=== PATIENT | male | born 1950 | race Caucasian/White ===

== ENCOUNTER → 2019-09-09 12:27 | Outpatient (CLI) | payer MEDICARE, SELFPAY ==
--- NOTE | 2019-09-09 12:32 | DI.RAD.S_ITS ---
PROCEDURE: XR FOOT LT MIN 3V INDICATIONS: Pain to 2nd and 3rd metatarsal s/p trauma TECHNIQUE: 3 views of the foot were acquired. COMPARISON: None. FINDINGS: Bones: No fractures or dislocations. No suspicious bony lesions. Mild degenerative changes of the 1st metatarsal phalangeal joint are present. An enthesophyte is evident at the Achilles tendon insertion on the calcaneal tuberosity. Soft tissues: No tibiotalar joint effusion. Achilles tendon appears normal. IMPRESSION: No acute osseous abnormality of the left foot. Dictated by: Rajesh Hernandez M.D. on 09/09/2019 at 12:00 Approved by: Rajesh Hernandez M.D. on 09/09/2019 at 12:03
== END ==
LOC: RAD 12:31
PROVIDERS: Visit Provider Nurse Practitioner
DX: M79.672 Pain in left foot (principal)
CPT/HCPCS: 73630

== ENCOUNTER 2020-08-13 13:02 | Inpatient (IN) | payer MEDICARE, SELFPAY ==
[2020-08-13] VITALS (79 sets, daily range): BP systolic 78–188; BP diastolic 48–90; PULSE 39–66; RESP 7–22; TEMP 34.8–37.2; O2SAT 91–100; BMI 24.5
--- NOTE | 2020-08-13 13:11 | DI.RAD.S_ITS ---
PROCEDURE: XR CHEST 1V INDICATIONS: intubated TECHNIQUE: One view of the chest was acquired. COMPARISON: None. FINDINGS: Surgical changes and devices: Endotracheal tube at the lower trachea. Cardiac generator device projecting over the left chest. Lungs and pleura: Low lung volumes. Mild left retrocardiac airspace opacity. Mildly prominent perihilar pulmonary markings. Suspect calcified left hilar lymph nodes. No pleural effusions or pneumothorax. Mediastinum: Mediastinal contours appear normal. Heart size is normal. Bones and chest wall: No suspicious bony lesions. Overlying soft tissues appear unremarkable. IMPRESSION: 1. Low lung volumes. 2. Mild left retrocardiac airspace opacity. This could be due to pneumonia, atelectasis, or aspiration. 3. Suspect calcified left hilar lymph nodes. Dictated by: Siddhartha Tai M.D. on 08/13/2020 at 13:39 Approved by: Siddhartha Tai M.D. on 08/13/2020 at 13:41
--- NOTE | 2020-08-13 13:16 | RT ---
Arrived to ER via EMS intubated, poss OD, at 1300. Placed to LTV in ER, verbal order Dr. Beltran: AC/450/rr 20, Fiow50%, 5 PEEP. CXR pending. At 1315, verbal order to decreased RR to 14. Lung sounds clear and distant (L>R)
--- NOTE | 2020-08-13 13:18 | ED.OVERDOSE ---
HPI - Overdose General Chief Complaint: Toxicology Problem Stated Complaint: Lorazepam OD, Time Seen by Provider: 08/13/20 13:10 Source: EMS Mode of arrival: EMS History of Present Illness HPI Narrative: Patient is a 70-year-old male with history insulin-dependent diabetes and of depression presenting with a clonazepam overdose. He took 60 tablets of clonazepam at 0.5 mg each for a total of 30 mg. patient was on or case I went he was transported by [facility] patient Ada durbin rated in route and was intubated by paramedics with a 100mg rocuronium at noon and etomidate. Post intubation his blood pressure had a systolic of 100. At 12:37p He got a 2nd dose of rocuronium at 50 mg per protocol. He apparently does have a history of V-tach arrest associated with hypothermia. His girlfriend was the 1 who called EMS. The presumed intentional overdose suicide attempt. No prior attempt according to son. Tried to get him into a hospital a week ago they were unsuccessful. Told by PCP not to let him be alone. Son: Aristides Marrero [phone] Related Data Home Medications Medication Instructions Recorded Confirmed aspirin 325 mg tablet 325 mg PO DAILY 09/09/19 08/13/20 atorvastatin 80 mg tablet 80 mg PO DAILY 09/09/19 08/13/20 omeprazole 20 mg capsule,delayed 20 mg PO ONCE cap 09/09/19 08/13/20 release sertraline 50 mg tablet 100 mg PO DAILY 09/09/19 08/13/20 cholecalciferol (vitamin D3) 25 mcg PO DAILY 08/13/20 08/13/20 cyanocobalamin (vitamin B-12) 1,000 mcg PO DAILY 08/13/20 08/13/20 lisinopril 20 mg PO DAILY 08/13/20 08/13/20 metformin 1,000 mg PO BID 08/13/20 08/13/20 quetiapine 50 mg PO BEDTIME 08/13/20 08/13/20 Allergies Allergy/AdvReac Type Severity Reaction Status Date / Time No Allergy Information Allergy Verified 08/13/20 13:29 Available Review of Systems Review of Systems ROS Unobtainable: Unobtainable due to medical condition Patient History Medical History (Updated 08/13/20 @ 15:54 by Anabel Ocasio DO) Chronic kidney disease, unspecified (Acute) CVA (cerebral vascular accident) (Acute) Dehydration (Acute) Depression (Acute) Type 2 diabetes mellitus without complication (Acute) Social History Smoking Status: Unknown if ever smoked Smoking Status: Unknown if ever smoked Exam Initial Vital Signs Initial Vital Signs: Vital Signs Pulse Rate 56 L 08/13/20 13:07 Blood Pressure 108/62 08/13/20 13:07 Pulse Oximetry 96 08/13/20 13:07 Gen.: Intubated sedated patient HEENT: Head is atraumatic pupils are pinpoint nonreactive Neck: No JVD Lungs: Clear bilaterally slightly decreased on left Cardiac: Regular rate and rhythm no murmurs Abdomen: Soft nontender nondistended Extremities: No edema no bony deformities Neurologic: Sedated on vent Course Orders Ordered: ED Orders 08/13/20 13:11 XR chest 1V Stat 08/13/20 13:13 Arterial Blood Gas Stat 08/13/20 13:15 Acetaminophen Stat Complete Blood Count AUTO DIFF Stat Comprehensive Metabolic Panel Stat Ethanol (ETOH) Stat Hepatic (Liver) Panel Stat Lactate (Lactic Acid) Stat Salicylate Stat Troponin & CK Cardiac Panel Stat 08/13/20 13:16 COVID19 -ED/INPAT/OR/L&D Stat 08/13/20 13:25 Urine Drug Screen, Rapid Stat 08/13/20 13:29 Endotracheal tube suction As needed 08/13/20 13:38 XR abdomen 1V Stat 08/13/20 13:41 Arterial Blood Gas Routine 08/13/20 13:46 Consult to Dietitian, Adult Routine Endotracheal tube suction As needed 08/13/20 13:48 CT head/brain wo con Stat 08/13/20 14:00 Arterial Blood Gas Daily Sputum Culture 08/13/20 14:23 EKG-12 Lead Stat 08/13/20 14:28 Consult to MANUFACTURING ENGINEERING MANAGER - Trapeze Artist Stat 08/14/20 14:00 Arterial Blood Gas Daily Sputum Culture 08/15/20 14:00 Arterial Blood Gas Daily Sputum Culture 08/16/20 14:00 Arterial Blood Gas Daily 08/17/20 14:00 Arterial Blood Gas Daily 08/18/20 14:00 Arterial Blood Gas Daily 08/19/20 14:00 Arterial Blood Gas Daily 08/20/20 14:00 Arterial Blood Gas Daily 08/21/20 14:00 Arterial Blood Gas Daily 08/22/20 14:00 Arterial Blood Gas Daily 08/23/20 14:00 Arterial Blood Gas Daily 08/24/20 14:00 Arterial Blood Gas Daily 08/25/20 14:00 Arterial Blood Gas Daily 08/26/20 14:00 Arterial Blood Gas Daily Acetaminophen (Tylenol) 650 mg VT Q6HR PRN PRN Reason: Fever Enoxaparin Sodium (Lovenox) 40 mg SUBCUT DAILY NELDA Fentanyl (Sublimaze) 50 mcg IV Q1HR PRN PRN Reason: Pain, Severe (7-10) Propofol (Propofol) 1,000 mg in 100 mls @ 2.127 mls/hr IV TITRATE NELDA; Protocol Last Titration: 08/13/20 17:55 Dose: 10 mcg/kg/min, 4.254 mls/hr Documented by: Titration: 08/13/20 16:12 Dose: 15 mcg/kg/min, 6.381 mls/hr Documented by: Titration: 08/13/20 16:10 Dose: 10 mcg/kg/min, 4.254 mls/hr Documented by: Titration: 08/13/20 15:20 Dose: 10 mcg/kg/min, 4.254 mls/hr Documented by: Titration: 08/13/20 15:15 Dose: 7 mcg/kg/min, 2.978 mls/hr Documented by: Titration: 08/13/20 14:40 Dose: 5 mcg/kg/min, 2.127 mls/hr Documented by: Admin: 08/13/20 13:31 Dose: 10 mcg/kg/min, 4.254 mls/hr Documented by: CARIDAD Fentanyl 1,000 mcg/ Dextrose 250 mls @ 12.408 mls/hr IV TITRATE NELDA; Protocol Last Titration: 08/13/20 16:12 Dose: 0.71 mcg/kg/hr, 12.585 mls/hr Documented by: Titration: 08/13/20 16:11 Dose: 0.7 mcg/kg/hr, 12.408 mls/hr Documented by: Admin: 08/13/20 13:52 Dose: 0.7 mcg/kg/hr, 12.408 mls/hr Documented by: CHANDANA Sodium Chloride (Normal Saline 0.9%) 1,000 mls @ 100 mls/hr IV CONT NELDA Last Admin: 08/13/20 17:11 Dose: 100 mls/hr Documented by: TAQUERIA Naloxone HCl (Narcan) 0.2 mg IV Q2MIN PRN PRN Reason: Opiate Reversal Pantoprazole Sodium (Protonix) 40 mg IV DAILY NELDA Discontinued Medications Sodium Chloride (Normal Saline 0.9%) 1,000 mls @ 150 mls/hr IV CONT NELDA Last Infusion: 08/13/20 15:02 Dose: 0 mls/hr Documented by: Infusion: 08/13/20 13:52 Dose: 999 mls/hr Documented by: Admin: 08/13/20 13:32 Dose: 150 mls/hr Documented by: CARIDAD Vital Signs Vital signs: Vital Signs - 8 hr 08/13/20 13:07 08/13/20 13:12 08/13/20 13:16 Temperature Pulse Rate 56 L 56 L 54 L Respiratory Rate 20 14 Blood Pressure 108/62 154/78 H 127/81 Pulse Oximetry 96 94 100 08/13/20 13:20 08/13/20 13:25 08/13/20 13:27 Temperature 94.6 F L 94.6 F L 94.8 F L Pulse Rate 66 62 61 Respiratory Rate 14 22 16 Blood Pressure 146/81 H 187/88 H 188/90 H Pulse Oximetry 100 100 100 08/13/20 13:30 08/13/20 13:35 08/13/20 13:40 Temperature 94.8 F L 95.0 F L 95.0 F L Pulse Rate 52 L 53 L 50 L Respiratory Rate 15 15 14 Blood Pressure 164/77 H 110/64 101/59 L Pulse Oximetry 100 100 100 08/13/20 13:41 08/13/20 13:45 08/13/20 13:50 Temperature Pulse Rate 49 L 49 L 48 L Respiratory Rate 14 13 11 L Blood Pressure 91/57 L 84/57 L Pulse Oximetry 100 100 97 08/13/20 14:07 08/13/20 14:10 08/13/20 14:15 Temperature Pulse Rate 45 L 45 L 44 L Respiratory Rate 17 16 Blood Pressure 97/61 91/54 L Pulse Oximetry 100 91 100 08/13/20 14:20 08/13/20 14:21 08/13/20 14:25 Temperature Pulse Rate 43 L 43 L 43 L Respiratory Rate 7 L 16 15 Blood Pressure 84/50 L 85/53 L Pulse Oximetry 100 100 100 08/13/20 14:30 08/13/20 14:35 08/13/20 14:40 Temperature Pulse Rate 42 L 40 L 40 L Respiratory Rate 14 14 14 Blood Pressure 89/53 L 91/55 L 93/55 L Pulse Oximetry 100 100 100 MDM - Overdose Lab Data Attestation: I reviewed the patient's lab results. Result diagrams: 08/13/20 13:15 08/13/20 13:15 Labs: Lab Results 08/13/20 08/13/20 08/13/20 Range/Units 13:15 13:15 13:15 WBC 5.0 (4.5-11.0) X10^3/uL RBC 4.67 (4.5-5.9) X10^6/uL Hgb 14.0 (13.5-17.5) g/dL Hct 41.4 (41-53) % MCV 88.6 (80-100) fL MCH 30.0 (26-34) PG MCHC 33.8 (30-36) % RDW 14.3 (11.6-14.8) % Plt Count 119 L (150-400) X10^3/uL Neut % (Auto) 66.3 (50-75) % Lymph % (Auto) 17.8 L (25-40) % [place] % (Auto) 11.8 (3-14) % Eos % (Auto) 3.4 (2-4) % Baso % (Auto) 0.7 (0-2) % Neut # (Auto) 3300 (3072-3718) /uL Lymph # (Auto) 900 L (1312-5503) /uL [place] # (Auto) 600 (0-900) /uL Eos # (Auto) 200 (0-450) /uL Baso # (Auto) 0 (0-100) /uL ABG pH (7.35-7.45) ABG pCO2 (35-45) mmHg ABG pO2 (80-100) mmHg ABG HCO3 (22-26) mmol/L ABG Total CO2 (21-31) mmol/L ABG O2 Saturation (95-100) % ABG Base Excess (-2-2) mmol/L FiO2 Sodium 140 (137-145) mmol/L Potassium 4.8 (3.4-5.1) mmol/L Chloride 105 (98-107) mmol/L Carbon Dioxide 28 (22-32) mmol/L BUN 20 (9-20) mg/dL Creatinine 1.10 (0.66-1.25) mg/dL Estimated GFR > 60.0 (>60) mL/min BUN/Creatinine Ratio 18.2 (6-22) Glucose 102 (80-110) mg/dL Lactate 1.4 (0.7-2.1) mmol/L Calcium 8.8 (8.4-10.2) mg/dL Total Bilirubin 1.0 (0.2-1.3) mg/dL Conjugated Bilirubin 0.0 (0.0-0.3) md/dL Unconjugated Bilirubin 0.8 (0.0-1.1) mg/dL AST 47 (17-59) IU/L ALT 35 (<50) IU/L Alkaline Phosphatase 79 (38-126) U/L Total Creatine Kinase 60 (55-170) U/L CK-MB (CK-2) TNP CK-MB (CK-2) Rel Index TNP Troponin I < 0.012 (0.01-0.034) ng/mL Total Protein 6.9 (6.3-8.2) g/dL Albumin 3.7 (3.5-5.0) g/dL Globulin 3.2 (1.7-4.1) g/dL Albumin/Globulin Ratio 1.2 (1.0-2.8) Salicylates < 1.0 (<20) mg/dL U Opiates 300ng/mL cut (Negative) Ur Oxycodone Screen (Negative) Urine Methadone Screen (Negative) Acetaminophen < 10 L (10-30) ug/mL Ur Barbiturates Screen (Negative) U Tricyclic Antidepress (Negative) Ur Phencyclidine Scrn (Negative) Ur Amphetamines Screen (Negative) U Methamphetamines Scrn (Negative) Ur MDMA Scrn (Ecstasy) (Negative) U Benzodiazepines Scrn (Negative) Urine Cocaine Screen (Negative) U Marijuana (THC) Screen (Negative) Ethyl Alcohol < 10 ( - 10) mg/dL COVID-19 PCR (Negative) 08/13/20 08/13/20 08/13/20 Range/Units 13:16 13:25 13:41 WBC (4.5-11.0) X10^3/uL RBC (4.5-5.9) X10^6/uL Hgb (13.5-17.5) g/dL Hct (41-53) % MCV (80-100) fL MCH (26-34) PG MCHC (30-36) % RDW (11.6-14.8) % Plt Count (150-400) X10^3/uL Neut % (Auto) (50-75) % Lymph % (Auto) (25-40) % [place] % (Auto) (3-14) % Eos % (Auto) (2-4) % Baso % (Auto) (0-2) % Neut # (Auto) (7688-6521) /uL Lymph # (Auto) (3534-6355) /uL [place] # (Auto) (0-900) /uL Eos # (Auto) (0-450) /uL Baso # (Auto) (0-100) /uL ABG pH 7.44 (7.35-7.45) ABG pCO2 35.7 (35-45) mmHg ABG pO2 107 H (80-100) mmHg ABG HCO3 24 (22-26) mmol/L ABG Total CO2 25 (21-31) mmol/L ABG O2 Saturation 98 (95-100) % ABG Base Excess 0.0 (-2-2) mmol/L FiO2 50 Sodium (137-145) mmol/L Potassium (3.4-5.1) mmol/L Chloride (98-107) mmol/L Carbon Dioxide (22-32) mmol/L BUN (9-20) mg/dL Creatinine (0.66-1.25) mg/dL Estimated GFR (>60) mL/min BUN/Creatinine Ratio (6-22) Glucose (80-110) mg/dL Lactate (0.7-2.1) mmol/L Calcium (8.4-10.2) mg/dL Total Bilirubin (0.2-1.3) mg/dL Conjugated Bilirubin (0.0-0.3) md/dL Unconjugated Bilirubin (0.0-1.1) mg/dL AST (17-59) IU/L ALT (<50) IU/L Alkaline Phosphatase (38-126) U/L Total Creatine Kinase (55-170) U/L CK-MB (CK-2) CK-MB (CK-2) Rel Index Troponin I (0.01-0.034) ng/mL Total Protein (6.3-8.2) g/dL Albumin (3.5-5.0) g/dL Globulin (1.7-4.1) g/dL Albumin/Globulin Ratio (1.0-2.8) Salicylates (<20) mg/dL U Opiates 300ng/mL cut Negative (Negative) Ur Oxycodone Screen Negative (Negative) Urine Methadone Screen Negative (Negative) Acetaminophen (10-30) ug/mL Ur Barbiturates Screen Negative (Negative) U Tricyclic Antidepress Negative (Negative) Ur Phencyclidine Scrn Negative (Negative) Ur Amphetamines Screen Negative (Negative) U Methamphetamines Scrn Negative (Negative) Ur MDMA Scrn (Ecstasy) Negative (Negative) U Benzodiazepines Scrn Positive H (Negative) Urine Cocaine Screen Negative (Negative) U Marijuana (THC) Screen Negative (Negative) Ethyl Alcohol ( - 10) mg/dL COVID-19 PCR Negative (Negative) Point of Care Testing Glucose POC 112 Imaging Data Chest x-ray: Radiologist's Impression: PROCEDURE: XR CHEST 1V INDICATIONS: intubated TECHNIQUE: One view of the chest was acquired. COMPARISON: None. FINDINGS: Surgical changes and devices: Endotracheal tube at the lower trachea. Cardiac generator device projecting over the left chest. Lungs and pleura: Low lung volumes. Mild left retrocardiac airspace opacity. Mildly prominent perihilar pulmonary markings. Suspect calcified left hilar lymph nodes. No pleural effusions or pneumothorax. Mediastinum: Mediastinal contours appear normal. Heart size is normal. Bones and chest wall: No suspicious bony lesions. Overlying soft tissues appear unremarkable. IMPRESSION: 1. Low lung volumes. 2. Mild left retrocardiac airspace opacity. This could be due to pneumonia, atelectasis, or aspiration. 3. Suspect calcified left hilar lymph nodes. Dictated by: Siddhartha Tai M.D. on 08/13/2020 at 13:39 CT scan - head: Radiologist's Impression: PROCEDURE: CT HEAD/BRAIN WO CON INDICATIONS: unresponsive TECHNIQUE: Noncontrast 4.5 mm thick angled axial sections acquired from the foramen magnum to the vertex, with coronal and sagittal reformats. For radiation dose reduction, the following was used: automated exposure control, adjustment of mA and/or kV according to patient size. COMPARISON: None. FINDINGS: Image quality: Excellent. CSF spaces: Basal cisterns are patent. No extra-axial fluid collections. The ventricles are symmetric in size and shape. Brain: No intracranial bleeds or masses. There is cerebral volume loss for age, with resultant ventricular and sulcal prominence. There are periventricular and deep white matter chronic small vessel ischemic changes. There is intracranial internal carotid artery atherosclerosis. Old right cerebellar infarct. Skull and face: Calvarium and visualized facial bones appear intact, without suspicious lesions. Sinuses: Visualized sinuses demonstrate minimal to mild bilaterally sinus fluid levels, right greater than left. Ethmoid mucosal thickening. IMPRESSION: 1. No acute intracranial process. 2. Moderate atrophy and chronic microvascular ischemic changes. Dictated by: Laverne King M.D. on 08/13/2020 at 14:13 Approved by: Laverne King M.D. on 08/13/2020 at 14:19 Abdominal x-ray: Radiologist's Impression: PROCEDURE: XR ABDOMEN 1V INDICATIONS: check OG placement TECHNIQUE: One view of the abdomen acquired. COMPARISON: None. FINDINGS: Surgical changes and devices: Orogastric tube tip is below the left hemidiaphragm and is in the region of mid to distal gastric lumen projecting at L2 level. Bowel: Bowel gas pattern is normal. Soft tissues: No suspicious abdominal calcifications. Visualized solid organ contours appear normal in size. Bones: No suspicious bony lesions. IMPRESSION: OG tube tip is in the region of mid to distal gastric lumen as above. No gross peritoneal free air. Dictated by: Geo Sheffield M.D. on 08/13/2020 at 14:19 ECG Data Attestation: I personally reviewed and interpreted this ECG as follows: Prior ECG tracings: not available for review Interpretation: Rate 44 p.r. interval 168 QRS [address] changes or signs of ischemia no priors to compare MDM Narrative Medical decision making narrative: Discussed with estrella Irving on the phone. Further information is added into the HPI. This seems to be an intentional overdose. Dr. Shah accept patient to the ICU Discharge Plan Departure Patient Disposition: Admitted As Inpatient Clinical Impression: Benzodiazepine (tranquilizer) overdose Qualifiers: Encounter type: initial encounter Injury intent: accidental or unintentional Qualified Code(s): T42.4X1A - Poisoning by benzodiazepines, accidental (unintentional), initial encounter Respiratory failure Qualifiers: Chronicity: acute Respiratory failure complication: unspecified whether with hypoxia or hypercapnia Qualified Code(s): J96.00 - Acute respiratory failure, unspecified whether with hypoxia or hypercapnia Discharge Date/Time: 08/13/20 16:14 Admit Date/Time: 08/13/20 14:42 Admit Provider: Musa Shah
[2020-08-13] MEDS: propofoL 1,000 MG/100 ML VIAL 4.254 MG IV (13:31)
[2020-08-13] MEDS: MIDAZOLAM 5 MG/ML VIAL (13:31)
[2020-08-13] MEDS: SODIUM CHLORIDE 0.9% 1,000 ML 150 ML IV (13:32)
--- NOTE | 2020-08-13 13:32 | RT ---
Verbal order Dr Beltran to withdraw ET tube 1 cm; now 23 at lip midline, also to decrease RR to 14. Secured by Ana and bite block, bilat breath sounds remain.
[2020-08-13 13:35] LABS: COVID19 -Nasal RAPID Negative (Negative)
[2020-08-13 13:36] LABS: Add Manual Diff / Slide Review NO; Basophils Absolute Auto 0 /uL (0-100); Basophils Percent Auto 0.7 % (0-2); Eosinophils Absolute Auto 200 /uL (0-450); Eosinophils Percent Auto 3.4 % (2-4); Hematocrit 41.4 % (41-53); Lymphocytes Absolute Auto 900 /uL (1100-4500); Lymphocytes Percent Auto 17.8 % (25-40); Mean Corpuscular HGB Conc 33.8 % (30-36); Mean Corpuscular Volume 88.6 fL (80-100); Monocytes Absolute Auto 600 /uL (0-900); Monocytes Percent Auto 11.8 % (3-14); Neutrophils Absolute Auto 3300 /uL (1500-7000); Neutrophils Percent Auto 66.3 % (50-75); Platelet Count 119 X10^3/uL (150-400); Red Blood Cell Count 4.67 X10^6/uL (4.5-5.9); Red Cell Distribution Width 14.3 % (11.6-14.8)
--- NOTE | 2020-08-13 13:38 | DI.RAD.S_ITS ---
PROCEDURE: XR ABDOMEN 1V INDICATIONS: check OG placement TECHNIQUE: One view of the abdomen acquired. COMPARISON: None. FINDINGS: Surgical changes and devices: Orogastric tube tip is below the left hemidiaphragm and is in the region of mid to distal gastric lumen projecting at L2 level. Bowel: Bowel gas pattern is normal. Soft tissues: No suspicious abdominal calcifications. Visualized solid organ contours appear normal in size. Bones: No suspicious bony lesions. IMPRESSION: OG tube tip is in the region of mid to distal gastric lumen as above. No gross peritoneal free air. Dictated by: Geo Sheffield M.D. on 08/13/2020 at 14:19 Approved by: Geo Sheffield M.D. on 08/13/2020 at 14:20
[2020-08-13 13:41] LABS: Alanine Aminotransferase 35 IU/L (<50); Albumin 3.7 g/dL (3.5-5.0); Albumin Globulin Ratio 1.2 (1.0-2.8); Alkaline Phosphatase 79 U/L (38-126); Aspartate Aminotransferase 47 IU/L (17-59); BUN Creatinine Ratio 18.2 (6-22); Bilirubin Unconjugated 0.8 mg/dL (0.0-1.1); Blood Urea Nitrogen 20 mg/dL (9-20); Calcium 8.8 mg/dL (8.4-10.2); Carbon Dioxide 28 mmol/L (22-32); Chloride 105 mmol/L (98-107); Creatine Kinase 60 U/L (55-170); Estimated Glomerular Filt Rate > 60.0 mL/min (>60); Globulin 3.2 g/dL (1.7-4.1); Glucose 102 mg/dL (80-110); Lactate (Lactic Acid) 1.4 mmol/L (0.7-2.1); Potassium 4.8 mmol/L (3.4-5.1); Sodium 140 mmol/L (137-145); Total Protein 6.9 g/dL (6.3-8.2)
[2020-08-13 13:46] LABS: UR Morphine/Opiate cutoff 300 Negative (Negative); Ur Creatinine Normal (Normal); Ur Specific Gravity Normal (Normal); Urine Amphetamines Negative (Negative); Urine Barbiturates Negative (Negative); Urine Benzodiazepines Positive (Negative); Urine Cocaine Negative (Negative); Urine MDMA Negative (Negative); Urine Methadone Negative (Negative); Urine Methamphetamines Negative (Negative); Urine Oxycodone Negative (Negative); Urine Phencyclidine Negative (Negative); Urine Tetrahydrocannabinol Negative (Negative); Urine Tricyclic Antidepressant Negative (Negative); Urine pH Normal (Normal)
--- NOTE | 2020-08-13 13:48 | DI.CT.S_ITS ---
PROCEDURE: CT HEAD/BRAIN WO CON INDICATIONS: unresponsive TECHNIQUE: Noncontrast 4.5 mm thick angled axial sections acquired from the foramen magnum to the vertex, with coronal and sagittal reformats. For radiation dose reduction, the following was used: automated exposure control, adjustment of mA and/or kV according to patient size. COMPARISON: None. FINDINGS: Image quality: Excellent. CSF spaces: Basal cisterns are patent. No extra-axial fluid collections. The ventricles are symmetric in size and shape. Brain: No intracranial bleeds or masses. There is cerebral volume loss for age, with resultant ventricular and sulcal prominence. There are periventricular and deep white matter chronic small vessel ischemic changes. There is intracranial internal carotid artery atherosclerosis. Old right cerebellar infarct. Skull and face: Calvarium and visualized facial bones appear intact, without suspicious lesions. Sinuses: Visualized sinuses demonstrate minimal to mild bilaterally sinus fluid levels, right greater than left. Ethmoid mucosal thickening. IMPRESSION: 1. No acute intracranial process. 2. Moderate atrophy and chronic microvascular ischemic changes. Dictated by: Laverne King M.D. on 08/13/2020 at 14:13 Approved by: Laverne King M.D. on 08/13/2020 at 14:19
[2020-08-13 13:51] LABS: HCO3 ABG 24 mmol/L (22-26); PCO2 ABG 35.7 mmHg (35-45); PO2 ABG 107 mmHg (80-100); TCO2 ABG 25 mmol/L (21-31); pH ABG 7.44 (7.35-7.45)
[2020-08-13 13:52] LABS: Fractionated Inspired Oxygen 50; Oxygen Saturation ABG 98 % (95-100)
[2020-08-13 13:53] LABS: Troponin I < 0.012 ng/mL (0.01-0.034)
[2020-08-13] MEDS: fentaNYL 1,000 MCG in DEXTROSE 5% IN WATER 230 ML 12.408 ML IV (14:16)
--- NOTE | 2020-08-13 14:22 | PC.NURSE ---
Son Stefano Marrero called to get update. ([phone]). Given update by provider.
[2020-08-13 14:43] LABS: Acetaminophen < 10 ug/mL (10-30); Ethanol (ETOH) < 10 mg/dL; Salicylate < 1.0 mg/dL (<20)
[2020-08-13 14:44] LABS: HEMOLYSIS 97 (0-50)
--- NOTE | 2020-08-13 15:11 | PC.NURSE ---
Update from friend Mouna who activated EMS this morning. Rocio has pt's wallet. States she would like to leave his phone / front end engineer here w/ his belongings.
--- NOTE | 2020-08-13 15:18 | PC.NURSE ---
[facility] updated from 08/08[place] visit record.
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
--- NOTE | 2020-08-13 16:51 | PC.NURSE ---
Patient arrived to unit from ER at 16:05 intubated/bagged, RT in room to switch to ventilator, PEEP 5, TV 450, RR 14. BP 121/60, HR in the 40s. OG, Hill, restraints in place. Propofol running at 15 mcg/kg/min and fentanyl 50 mcg/hr Suction and ambu bag at bedside.
[2020-08-13] MEDS: SODIUM CHLORIDE 0.9% 1,000 ML 100 ML IV (17:11)
[2020-08-14] VITALS (39 sets, daily range): BP systolic 91–148; BP diastolic 50–68; PULSE 44–60; RESP 10–19; TEMP 37–37.3; O2SAT 97–100; BMI 24.5
[2020-08-14] MEDS: SODIUM CHLORIDE 0.9% 1,000 ML 150 ML IV ×2 (04:17→11:09)
[2020-08-14] MEDS: propofoL 1,000 MG/100 ML VIAL 4.254 MG IV (04:19)
[2020-08-14 05:28] LABS: Add Manual Diff / Slide Review NO; Basophils Absolute Auto 0 /uL (0-100); Basophils Percent Auto 0.4 % (0-2); Eosinophils Absolute Auto 100 /uL (0-450); Eosinophils Percent Auto 1.9 % (2-4); Hematocrit 36.4 % (41-53); Hemoglobin 12.3 g/dL (13.5-17.5); Lymphocytes Absolute Auto 700 /uL (1100-4500); Lymphocytes Percent Auto 9.3 % (25-40); Mean Corpuscular HGB Conc 33.8 % (30-36); Mean Corpuscular Hemoglobin 29.6 PG (26-34); Mean Corpuscular Volume 87.7 fL (80-100); Monocytes Absolute Auto 800 /uL (0-900); Monocytes Percent Auto 10.5 % (3-14); Neutrophils Absolute Auto 5600 /uL (1500-7000); Neutrophils Percent Auto 77.9 % (50-75); Platelet Count 103 X10^3/uL (150-400); Red Blood Cell Count 4.14 X10^6/uL (4.5-5.9); Red Cell Distribution Width 14.2 % (11.6-14.8); White Blood Cell Count 7.2 X10^3/uL (4.5-11.0)
[2020-08-14 05:28] LABS: Fractionated Inspired Oxygen 40; HCO3 ABG 22 mmol/L (22-26); Oxygen Saturation ABG 98 % (95-100); PCO2 ABG 34.5 mmHg (35-45); PO2 ABG 99 mmHg (80-100); TCO2 ABG 23 mmol/L (21-31); pH ABG 7.42 (7.35-7.45)
[2020-08-14 05:35] LABS: Hemoglobin A1C% w Est Avg Glu 6.7 % (4.0-6.0)
[2020-08-14 05:37] LABS: Alanine Aminotransferase 32 IU/L (<50); Albumin Globulin Ratio 1.2 (1.0-2.8); Alkaline Phosphatase 77 U/L (38-126); Aspartate Aminotransferase 37 IU/L (17-59); BUN Creatinine Ratio 16.8 (6-22); Bilirubin Total 0.8 mg/dL (0.2-1.3); Bilirubin Unconjugated 0.7 mg/dL (0.0-1.1); Blood Urea Nitrogen 19 mg/dL (9-20); Calcium 8.2 mg/dL (8.4-10.2); Carbon Dioxide 25 mmol/L (22-32); Chloride 108 mmol/L (98-107); Estimated Glomerular Filt Rate > 60.0 mL/min (>60); Globulin 2.6 g/dL (1.7-4.1); Glucose 88 mg/dL (80-110); HEMOLYSIS < 15 (0-50); Magnesium 1.5 mg/dL (1.6-2.3); Potassium 4.1 mmol/L (3.4-5.1); Sodium 137 mmol/L (137-145); Total Protein 5.6 g/dL (6.3-8.2)
--- NOTE | 2020-08-14 06:10 | PC.NURSE ---
slot shift manager note: Patient remains on ventilator with settings: PRVC 450/14/40/5+ . Patient sedated with Propofol at 10 mcg/kg/min and Fentanyl at 0.35 mcg/kg/hr (24 mcg/hr) down from 45 mcg/hr when this RN took over care. Patient with soft BPs throughout the shift but maintained map >60. Pt sedated to maintain RASS -3. Patient originally hypothermic on admission, now 99.1. Restraints in place and assessed every 2 hours, along with patient repositioning. Urine output marginal with 200 mL out for shift, now jess in color. Sputum culture obtained by RT during shift. Patient with suicide precautions implemented. Patient pending possible extubation today. Patient currently resting in bed, no distress noted.
[2020-08-14 06:13] LABS: TSH w/ Reflex to FT4 1.78 uIU/mL (0.47-4.68)
[2020-08-14] MEDS: MAGNESIUM SULFATE 2 GM/50 ML PIGGYBACK IV (08:13)
[2020-08-14] MEDS: PANTOPRAZOLE 40 MG VIAL IV (08:13)
[2020-08-14] MEDS: ENOXAPARIN 40 MG/0.4 ML SYRINGE SUBCUT (08:13)
--- NOTE | 2020-08-14 08:47 | PM.PN.1 ---
Subjective Subjective Date Patient Seen: 08/14/20 Time Patient Seen: 08:47 Interval history: Jorge Alberto Marrero is A 70-year-old male with past medical history of diabetes, hypertension, depression, prior stroke and cardiac arrest who intentionally took 60 tablets of clonazepam and was intubated in the field for worsening respiratory status. He is doing well this morning, on sedation vacation and following commands and alert. Failed initial pressure support trial given excessive sleepiness and frequent prompting to breathe. Will continue throughout the day. Exam Vital Signs (past 8 hours): - 08/14/20 01:00 08/14/20 02:00 08/14/20 03:00 Temperature Pulse Rate 58 L 57 L 60 Respiratory Rate 14 14 13 Blood Pressure 91/55 L 92/50 L 103/54 L Pulse Oximetry 100 98 97 08/14/20 04:00 08/14/20 05:00 08/14/20 06:00 Temperature 99.1 F Pulse Rate 57 L 57 L 52 L Respiratory Rate 14 14 14 Blood Pressure 115/56 L 119/62 110/55 L Pulse Oximetry 98 98 99 Fraction of Inspired Oxygen 50 Oxygen Delivery Method Mechanical Ventilation Narrative Exam Narrative: GENERAL APPEARANCE: Well developed, well nourished, Appears comfortable. SKIN: Inspection of the skin reveals no rashes, ulcerations or petechiae. HEENT: Normocephalic atraumatic, extraocular muscles are intact, oropharynx is clear and mucous membranes are moist, neck is supple without adenopathy. OG tube in place. NECK: Supple and symmetric. There was no thyroid enlargement, and no tenderness, or masses were felt. CHEST: Normal AP diameter and normal contour without any kyphoscoliosis. LUNGS: Auscultation of the lungs revealed no wheezes, rhonchi, or rales. CARDIOVASCULAR: There was a bradycardic rate and regular rhythm without any murmurs, gallops, rubs. Peripheral pulses were 2+ and symmetric. ABDOMEN: Soft and nontender with normal bowel sounds. No ascites was noted. MUSCULOSKELETAL: There was no tenderness or effusions noted. Muscle strength and tone were normal. EXTREMITIES: No cyanosis, clubbing or edema. NEUROLOGIC: intubated off sedation, follows commands with all extremities. Objective Labs Result Diagrams: 08/14/20 05:00 08/14/20 05:00 Labs: Laboratory Results - last 24 hr 08/13/20 08/13/20 08/13/20 13:15 13:15 13:15 WBC 5.0 RBC 4.67 Hgb 14.0 Hct 41.4 MCV 88.6 MCH 30.0 MCHC 33.8 RDW 14.3 Plt Count 119 L Neut % (Auto) 66.3 Lymph % (Auto) 17.8 L [place] % (Auto) 11.8 Eos % (Auto) 3.4 Baso % (Auto) 0.7 Neut # (Auto) 3300 Lymph # (Auto) 900 L [place] # (Auto) 600 Eos # (Auto) 200 Baso # (Auto) 0 ABG pH ABG pCO2 ABG pO2 ABG HCO3 ABG Total CO2 ABG O2 Saturation ABG Base Excess FiO2 Sodium 140 Potassium 4.8 Chloride 105 Carbon Dioxide 28 BUN 20 Creatinine 1.10 Estimated GFR > 60.0 BUN/Creatinine Ratio 18.2 Glucose 102 Hemoglobin A1c Lactate 1.4 Calcium 8.8 Magnesium Total Bilirubin 1.0 Conjugated Bilirubin 0.0 Unconjugated Bilirubin 0.8 AST 47 ALT 35 Alkaline Phosphatase 79 Total Creatine Kinase 60 CK-MB (CK-2) TNP CK-MB (CK-2) Rel Index TNP Troponin I < 0.012 Total Protein 6.9 Albumin 3.7 Globulin 3.2 Albumin/Globulin Ratio 1.2 TSH Nasal Screen MRSA (PCR) Salicylates < 1.0 U Opiates 300ng/mL cut Ur Oxycodone Screen Urine Methadone Screen Acetaminophen < 10 L Ur Barbiturates Screen U Tricyclic Antidepress Ur Phencyclidine Scrn Ur Amphetamines Screen U Methamphetamines Scrn Ur MDMA Scrn (Ecstasy) U Benzodiazepines Scrn Urine Cocaine Screen U Marijuana (THC) Screen Ethyl Alcohol < 10 COVID-19 PCR 08/13/20 08/13/20 08/13/20 13:16 13:25 13:41 WBC RBC Hgb Hct MCV MCH MCHC RDW Plt Count Neut % (Auto) Lymph % (Auto) [place] % (Auto) Eos % (Auto) Baso % (Auto) Neut # (Auto) Lymph # (Auto) [place] # (Auto) Eos # (Auto) Baso # (Auto) ABG pH 7.44 ABG pCO2 35.7 ABG pO2 107 H ABG HCO3 24 ABG Total CO2 25 ABG O2 Saturation 98 ABG Base Excess 0.0 FiO2 50 Sodium Potassium Chloride Carbon Dioxide BUN Creatinine Estimated GFR BUN/Creatinine Ratio Glucose Hemoglobin A1c Lactate Calcium Magnesium Total Bilirubin Conjugated Bilirubin Unconjugated Bilirubin AST ALT Alkaline Phosphatase Total Creatine Kinase CK-MB (CK-2) CK-MB (CK-2) Rel Index Troponin I Total Protein Albumin Globulin Albumin/Globulin Ratio TSH Nasal Screen MRSA (PCR) Salicylates U Opiates 300ng/mL cut Negative Ur Oxycodone Screen Negative Urine Methadone Screen Negative Acetaminophen Ur Barbiturates Screen Negative U Tricyclic Antidepress Negative Ur Phencyclidine Scrn Negative Ur Amphetamines Screen Negative U Methamphetamines Scrn Negative Ur MDMA Scrn (Ecstasy) Negative U Benzodiazepines Scrn Positive H Urine Cocaine Screen Negative U Marijuana (THC) Screen Negative Ethyl Alcohol COVID-19 PCR Negative 08/13/20 08/14/20 08/14/20 19:30 05:00 05:00 WBC 7.2 RBC 4.14 L Hgb 12.3 L Hct 36.4 L MCV 87.7 MCH 29.6 MCHC 33.8 RDW 14.2 Plt Count 103 L Neut % (Auto) 77.9 H Lymph % (Auto) 9.3 L [place] % (Auto) 10.5 Eos % (Auto) 1.9 L Baso % (Auto) 0.4 Neut # (Auto) 5600 Lymph # (Auto) 700 L [place] # (Auto) 800 Eos # (Auto) 100 Baso # (Auto) 0 ABG pH ABG pCO2 ABG pO2 ABG HCO3 ABG Total CO2 ABG O2 Saturation ABG Base Excess FiO2 Sodium 137 Potassium 4.1 Chloride 108 H Carbon Dioxide 25 BUN 19 Creatinine 1.13 Estimated GFR > 60.0 BUN/Creatinine Ratio 16.8 Glucose 88 Hemoglobin A1c Lactate Calcium 8.2 L Magnesium 1.5 L Total Bilirubin 0.8 Conjugated Bilirubin 0.0 Unconjugated Bilirubin 0.7 AST 37 ALT 32 Alkaline Phosphatase 77 Total Creatine Kinase CK-MB (CK-2) CK-MB (CK-2) Rel Index Troponin I Total Protein 5.6 L Albumin 3.0 L Globulin 2.6 Albumin/Globulin Ratio 1.2 TSH Nasal Screen MRSA (PCR) Negative for mrsa Salicylates U Opiates 300ng/mL cut Ur Oxycodone Screen Urine Methadone Screen Acetaminophen Ur Barbiturates Screen U Tricyclic Antidepress Ur Phencyclidine Scrn Ur Amphetamines Screen U Methamphetamines Scrn Ur MDMA Scrn (Ecstasy) U Benzodiazepines Scrn Urine Cocaine Screen U Marijuana (THC) Screen Ethyl Alcohol COVID-19 PCR 08/14/20 08/14/20 08/14/20 05:00 05:00 05:15 WBC RBC Hgb Hct MCV MCH MCHC RDW Plt Count Neut % (Auto) Lymph % (Auto) [place] % (Auto) Eos % (Auto) Baso % (Auto) Neut # (Auto) Lymph # (Auto) [place] # (Auto) Eos # (Auto) Baso # (Auto) ABG pH 7.42 ABG pCO2 34.5 L ABG pO2 99 ABG HCO3 22 ABG Total CO2 23 ABG O2 Saturation 98 ABG Base Excess -2.0 FiO2 40 Sodium Potassium Chloride Carbon Dioxide BUN Creatinine Estimated GFR BUN/Creatinine Ratio Glucose Hemoglobin A1c 6.7 H Lactate Calcium Magnesium Total Bilirubin Conjugated Bilirubin Unconjugated Bilirubin AST ALT Alkaline Phosphatase Total Creatine Kinase CK-MB (CK-2) CK-MB (CK-2) Rel Index Troponin I Total Protein Albumin Globulin Albumin/Globulin Ratio TSH 1.78 Nasal Screen MRSA (PCR) Salicylates U Opiates 300ng/mL cut Ur Oxycodone Screen Urine Methadone Screen Acetaminophen Ur Barbiturates Screen U Tricyclic Antidepress Ur Phencyclidine Scrn Ur Amphetamines Screen U Methamphetamines Scrn Ur MDMA Scrn (Ecstasy) U Benzodiazepines Scrn Urine Cocaine Screen U Marijuana (THC) Screen Ethyl Alcohol COVID-19 PCR Assessment & Plan Assessment & Plan narrative: Jorge Alberto Marrero is A 70-year-old male with past medical history of diabetes, hypertension, depression, prior stroke and cardiac arrest who intentionally took 60 tablets of clonazepam this morning In a presumed suicide attempt. He was intubated in transport to the hospital for respiratory decompensation and is admitted to the ICU for further management. 1. acute hypoxemic respiratory failure, present on admission - likely secondary to intentional clonazepam overdose. Remained intubated overnight, will continue sedation vacations today and continued evaluations for readiness for extubation with spontaneous breathing trials. - Chest x-ray shows a mild left retrocardiac opacity, no other signs or symptoms of pneumonia and may be aspiration from intubation in the field. Will continue to monitor off antibiotics. - continue fentanyl and propofol for sedation while on ventilator. 2. intentional overdose with clonazepam, acute, present on admission. - patient's son states medication be an old prescription, no recent Rx for benzos apparent. - has been battling with depression for years - CERTIFIED PROSTHETIST VICE PRESIDENT consultation, precautions once alert. Likely DCR consultation given patient was brought to the ER at [facility]? recently and discharged home. 3. Depression, present on admission - will continue home medications once able 4. Diabetes, type II, present on admission, chronic - A1c 6.7 inicating adequate control. Continue glucose checks q6 hr and sliding scale insulin if necessary. 5. HTN - will hold home antihypertensives for now while on sedation 6. Prior CVA - continue ASA, lipitor. 7. Prior cardiac arrest - continue ASA, lipitor. DVT: lovenox daily Diet: NPO Dispo: admitted under intensive care. DCR consultation likely after extubation. CERTIFIED PROSTHETIST VICE PRESIDENT consultation. I spent 35 minutes providing critical care management this patient. This excludes time spent in performing separately billed procedures.
[2020-08-14] MEDS: ASPIRIN 325 MG TABLET PO (11:13)
[2020-08-14] MEDS: DEXTROSE 5%-0.9% NS 1,000 ML 150 ML IV ×2 (13:57→22:44)
--- NOTE | 2020-08-14 14:09 | CM.DANOTE ---
Addendum entered by Sonia Mckeon 08/14/20 14:48: Need to clarify if Dr. Sandoval is PCP? Original Note: DCP/Assessment: Reviewed chart. Patient is a 70yr old male admitted to [facility] after intentional drug overdose. Patient currently intubated and no family at bedside. PCP is Dr. Sandoval. Primary payor is 1)Medicare 2)? Attending physician is Dr. Shah. Per notes, patient intentionally took approximately 60 clonazepam in presumed suicide attempt. Patient currently in room #227 on vent. Patient expected to extubate later today. OPERATIONS ADVISOR unable to do MH assessment due to current medical status. Placed call to patient's son/Aristides explained OPERATIONS ADVISOR role. Aristides reports that patient has long h/o depression however, this is the first time he has attempted suicide. Aristides reports that patient has talked about it for years. Patient resides on [place] with [employer]. Per Aristides, he does not believe that patient currently enrolled in any MH services. Son reports that patient went to [place] ED last week in hopes of assistance for depression. Per son they attempted placement and were unable to obtain. Family instructed at that time not leave patient alone. Therefore, SO/Mouna helping facilitate 24/ care. Son also reports that major changes that he is aware of is: 1)change in season 2)change psychiatric medication. Son believes that sertraline is new medication. He reports that patient was complaining of side effects. Son does not believe DPOA paperwork has been completed but reports that patient would want either his son/Aristides or daughter/Brandy as decision makers. P: Pending. Due to severeness of suicide attempt anticipate that patient will need inpatient psychiatric placement when medically stable. Unable to determine until patient extubated and alert and oriented. Unclear on whether or not patient is voluntary or involuntary. ELISEO Bangura Discharge Planning/Care Management CM Discharge Assessment Start: 08/14/20 14:02 Freq: Status: Active Protocol: Document 08/14/20 14:02 EVELIN (Rec: 08/14/20 14:08 EVELIN [id number]) Discharge Planning Assessment Assigned Flight Service Specialist ELISEO Bangura Contact Information Aristides (son) [phone], Brandy (daughter) Advance Directives? No History Provided By Family Member,Medical Record Prior Living Arrangements House Comment Patient currently resides on [place] with CHARLES/Mouna Dominguez phone# [phone]. Household Members significant other Is patient alert and oriented? Yes: Son reports Alert and oriented prior to admit. Caregiver for Another No Comment PCP is Dr. Sandoval son does not believe patient was currently enrolled with any MH services . Comment Geriatric/MH placement. Comment Pending, patient intubated today and unable to communicate for assessment. Hopeful patient will be extubated later today. Patient will need appropriate MH assessment for potential psychiatric treatment. Discharge Plan Psychiatric Facility Transportation Arrangement Pending if patient goes to MH facility will use non-urgent BLS transport. Additional Comment None as of now. Whiteboard Updated in Patient Room with Yes name and ext. # of Flight Service Specialist Review Status In Process Next Review Type Continued Stay Review
--- NOTE | 2020-08-14 14:45 | PC.NURSE ---
Day Shift Note Pt sedated to RASS -3 on fentanyl 0.5 mcg/kg/hr (decreased to 0.25 mcg/kg/hr) and propofol decreased from 10 to 5 mcg/kg/min on AM assessment. On ventilator, settings TV 450, RR 14, FiO2 30%, and PEEP 5. SpO2 100%, RR 14 riding vent. Sedation turned off at 0800 and has remained off for whole shift. Opens eyes easily, follows commands, able to answer questions by nodding or shaking head. Denies pain. CPAP trials done 0820 - 0850 and 1430 - 1445. Pt failed both times due to sedation/decreased respirations/requiring cueing for breathing. Restraints in place to bilateral wrists. SB in the 40-50s. CBG 76 this afternoon, updated and pt started on D5NS at 150 ml/hr. Hill in place and draining clear yellow urine. Minimal white oral secretions. Son (Aristides) and S.O. (Mouna) both updated via phone. Turning every 2 hours.
--- NOTE | 2020-08-14 15:49 | DIET.PN ---
Dietary Progress Note Assessment: 70y M admitted after intentional lorazepam overdose intubated in field currently d2 on ventilator referred to nutrition for low serafin score (14 high risk for skin breakdown) and NPO on ventilator status. Pt has hx of depression and suicidal ideation, recently taken to [facility] by family for help without placement in facility. Pt having spontaneous breathing trials today but not extubated r/t difficulty remembering to breathe. Pt is appropriate for nutrition support as MAP >65 and lactate is 1.4. HT: 170.1cm WT: 70.9kg BMI: 24.5 Labs: Mg 1.5 L, A1c 6.7 Serafin: 14 Nutrition Diagnosis: inadequate protein energy intake r/t inadequate oral intake aeb pt d2 on ventilator c NPO status, pt high risk for skin breakdown r/t Serafin 14, pt failed two spontaneous breathing trials today. Interventions: 1. If pt continues to be intubated on 08/15/2020 recc continuous enteral feeding via OG with Glucerna 1.5 beginning rate of 20mL/h titrating up by 10mL/h q8h as tolerated to goal rate of 40mL/h. 300mL free water flushes q4h. Goal feed provides 1440 kcals (20kcal/kg) and 79g PRO (1.1g/kg) total free water from formula and flushes 2529mL (36mL/kg). Pt is at moderately low risk for refeeding, monitor labs and replete K+, phos, Mg as needed. HOB 30 degrees while feeding If residuals >500mL, contact RD or hospitalist. Diet Order: NPO EER: PO intake: 1750kcal (25kcal/kg), 70g PRO (1g/kg per elder) permissive underfeeding while on ventilator Monitoring/Evaluations: following daily for extubation, labs, TF, POs
[2020-08-14] MEDS: fentaNYL 1,000 MCG in DEXTROSE 5% IN WATER 230 ML IV (16:56)
[2020-08-14] MEDS: ATORVASTATIN 20 MG TABLET 80 MG PO (21:11)
[2020-08-15] VITALS (22 sets, daily range): BP systolic 98–167; BP diastolic 52–75; PULSE 47–86; RESP 10–26; TEMP 36.6–37.6; O2SAT 92–100
[2020-08-15] MEDS: propofoL 1,000 MG/100 ML VIAL 2.127 MG IV (00:18)
[2020-08-15] MEDS: DEXTROSE 5%-0.9% NS 1,000 ML 150 ML IV ×2 (04:45→11:28)
[2020-08-15 05:12] LABS: Add Manual Diff / Slide Review NO; Basophils Absolute Auto 0 /uL (0-100); Basophils Percent Auto 0.4 % (0-2); Eosinophils Absolute Auto 200 /uL (0-450); Eosinophils Percent Auto 2.8 % (2-4); Hematocrit 36.4 % (41-53); Hemoglobin 12.3 g/dL (13.5-17.5); Lymphocytes Absolute Auto 800 /uL (1100-4500); Lymphocytes Percent Auto 13.3 % (25-40); Mean Corpuscular HGB Conc 33.9 % (30-36); Mean Corpuscular Hemoglobin 29.9 PG (26-34); Mean Corpuscular Volume 88.2 fL (80-100); Monocytes Absolute Auto 700 /uL (0-900); Neutrophils Absolute Auto 4400 /uL (1500-7000); Neutrophils Percent Auto 72.5 % (50-75); Platelet Count 98 X10^3/uL (150-400); Red Blood Cell Count 4.13 X10^6/uL (4.5-5.9); Red Cell Distribution Width 14.5 % (11.6-14.8)
[2020-08-15 05:23] LABS: Alanine Aminotransferase 32 IU/L (<50); Albumin 2.9 g/dL (3.5-5.0); Albumin Globulin Ratio 1.1 (1.0-2.8); Alkaline Phosphatase 77 U/L (38-126); Aspartate Aminotransferase 39 IU/L (17-59); Bilirubin Total 0.9 mg/dL (0.2-1.3); Bilirubin Unconjugated 0.8 mg/dL (0.0-1.1); Blood Urea Nitrogen 13 mg/dL (9-20); Calcium 7.8 mg/dL (8.4-10.2); Carbon Dioxide 25 mmol/L (22-32); Chloride 107 mmol/L (98-107); Estimated Glomerular Filt Rate > 60.0 mL/min (>60); Globulin 2.6 g/dL (1.7-4.1); Glucose 150 mg/dL (80-110); HEMOLYSIS < 15 (0-50); Magnesium 1.9 mg/dL (1.6-2.3); Potassium 3.6 mmol/L (3.4-5.1); Sodium 137 mmol/L (137-145); Total Protein 5.5 g/dL (6.3-8.2)
--- NOTE | 2020-08-15 06:42 | PC.NURSE ---
cosmetics counter manager note: Patient restless at start of shift - coughing, bucking ventilator, banging hand on bed. Patient repositioned, suctioned and stimulus decreased. Fentanyl increased at this time for comfort. Patient remained restless and uncomfortable. During this time, patient with moderate amount of secretions which have been suctioned out. Notified AMANDA Oliveros and she instructed to restart Propofol infusion at a low dose. Patient restarted on 5 mcg/kg/min. Patient resting comfortably thereafter. Patient remains in restraints due to high risk for dislodging tubes. Patient turned and repositioned every 2 hours. Hill catheter remains in place, great urine output throughout the shift. VSS, however, patient remains bradycardic with heart rate in 40's. This AM, patient awake, alert, following commands. Propofol turned off, Fentanyl has been decreased throughout the shift to 0.2 mcg/kg/hr ~ 14 mcg/hr. Tube feeding has remained running throughout the shift, and is increased to goal of 40 mL/hr with 300 mL H20 flush Q4H. Patient tolerating feedings well. Patient currently resting in bed, no distress noted pending possible extubation this morning.
--- NOTE | 2020-08-15 09:36 | PC.NURSE ---
Addendum entered by Florence Vargas R.N. 08/15/20 15:06: Pt is awake this afternoon. Son at bedside. Using IS and acapella with reminders. Repositioning independently in room. Original Note: Day Shift Note Pt with eyes open on AM assessment, tracking in room, answering questions by nodding or shaking head. Appears calm, able to make needs known by writing on paper. Reports pain to throat, otherwise denies pain. Fentanyl turned off at 0730 in preparation for CPAP trial. CPAP trial started at 0750 with FiO2 30%. Maintained oxygen saturations 98% and above, pulled good tidal volumes, RR mostly in the 12-16 bpm range but did occasionally decrease to 7-8 bpm. Readily responsive to voice. Reviewed with Dr. Shah and RT at bedside. Order received to extubate and pt extubated to RA at 0910. Restraints removed at 0900 to bilateral wrists. OG tube d/c'd at this time as well. Pt exhibited effective cough, able to clear secretions. Voice is soft but clear. RR 18-22 bpm, shallow, SpO2 96%. RT reviewed IS and acapella with pt, pt able to participate. SpO2 occ. decreasing down to 88%, placed on 2L NC at 0940, sats now at 98% and on end tidal CO2 (38-39). Oriented to room, call light within reach. Suicide precautions in place with one to one sitter at all times. Currently drowsy/sleeping.
[2020-08-15] MEDS: ENOXAPARIN 40 MG/0.4 ML SYRINGE SUBCUT (10:36)
[2020-08-15] MEDS: PANTOPRAZOLE 40 MG VIAL IV (10:36)
--- NOTE | 2020-08-15 14:50 | PC.NURSE ---
Patient's Son just arrived to visit. Patient is awake, alert, calm, has been watching TV and talking on his Cell Phone.
--- NOTE | 2020-08-15 15:43 | PC.NURSE ---
Patient's Son has just left. Patient is calm, repositioned, watching TV.
--- NOTE | 2020-08-15 17:36 | PM.PN.1 ---
Subjective Subjective Date Patient Seen: 08/15/20 Time Patient Seen: 17:36 Interval history: Jorge Alberto Marrero is A 70-year-old male with past medical history of diabetes, hypertension, depression, prior stroke and cardiac arrest who intentionally took 60 tablets of clonazepam and was intubated in the field for worsening respiratory status. He was able to be extubated this morning and is now improved and breathing well on nasal cannula only. He states he feels tired. After recently starting seroquel the patient could not sleep for more than a few hours at night, had racing thoughts and just wanted some rest. He no longer wanted to live like that and ultimately this is the reason he ingested the old prescription he had. He still states that he just wants to rest and feels like he would be better off . He was also having increasing difficulty with his CPAP at home and was making him miserable. Exam Vital Signs (past 8 hours): - 08/15/20 11:00 08/15/20 12:00 08/15/20 14:00 Temperature 99.4 F 99.5 F Pulse Rate 69 61 67 Respiratory Rate 20 21 23 Blood Pressure 143/65 H 136/61 139/66 Pulse Oximetry 97 95 94 08/15/20 16:00 Temperature 99.0 F Pulse Rate 53 L Respiratory Rate 21 Blood Pressure 167/75 H Pulse Oximetry 99 Fraction of Inspired Oxygen 0.3 Oxygen Delivery Method Nasal Cannula Narrative Exam Narrative: GENERAL APPEARANCE: Well developed, well nourished, Appears comfortable. SKIN: Inspection of the skin reveals no rashes, ulcerations or petechiae. HEENT: Normocephalic atraumatic, extraocular muscles are intact, oropharynx is clear and mucous membranes are moist, neck is supple without adenopathy. NECK: Supple and symmetric. There was no thyroid enlargement, and no tenderness, or masses were felt. CHEST: Normal AP diameter and normal contour without any kyphoscoliosis. LUNGS: Auscultation of the lungs revealed no wheezes, rhonchi, or rales. CARDIOVASCULAR: There was a bradycardic rate and regular rhythm without any murmurs, gallops, rubs. Peripheral pulses were 2+ and symmetric. ABDOMEN: Soft and nontender with normal bowel sounds. No ascites was noted. MUSCULOSKELETAL: There was no tenderness or effusions noted. Muscle strength and tone were normal. EXTREMITIES: No cyanosis, clubbing or edema. NEUROLOGIC: flat affect. alert and oriented x3. No focal deficits. Objective Labs Result Diagrams: 08/15/20 04:46 08/15/20 04:46 Labs: Laboratory Results - last 24 hr 08/15/20 08/15/20 04:46 04:46 WBC 6.0 RBC 4.13 L Hgb 12.3 L Hct 36.4 L MCV 88.2 MCH 29.9 MCHC 33.9 RDW 14.5 Plt Count 98 L Neut % (Auto) 72.5 Lymph % (Auto) 13.3 L [place] % (Auto) 11.0 Eos % (Auto) 2.8 Baso % (Auto) 0.4 Neut # (Auto) 4400 Lymph # (Auto) 800 L [place] # (Auto) 700 Eos # (Auto) 200 Baso # (Auto) 0 Sodium 137 Potassium 3.6 Chloride 107 Carbon Dioxide 25 BUN 13 Creatinine 1.18 Estimated GFR > 60.0 BUN/Creatinine Ratio 11.0 Glucose 150 H Calcium 7.8 L Magnesium 1.9 Total Bilirubin 0.9 Conjugated Bilirubin 0.0 Unconjugated Bilirubin 0.8 AST 39 ALT 32 Alkaline Phosphatase 77 Total Protein 5.5 L Albumin 2.9 L Globulin 2.6 Albumin/Globulin Ratio 1.1 Assessment & Plan Assessment & Plan narrative: Jorge Alberto Marrero is A 70-year-old male with past medical history of diabetes, hypertension, depression, prior stroke and cardiac arrest who intentionally took 60 tablets of clonazepam this morning In a presumed suicide attempt. He was intubated in transport to the hospital for respiratory decompensation and is admitted to the ICU for further management. 1. acute hypoxemic respiratory failure, present on admission, improved. - likely secondary to intentional clonazepam overdose. Remained intubated for two nights until was alert enough to tolerate extubation this morning. Extubated successfully to nasal cannula. - Chest x-ray shows a mild left retrocardiac opacity, no other signs or symptoms of pneumonia and may be aspiration from intubation in the field. Will continue to monitor off antibiotics. 2. intentional overdose with clonazepam, acute, present on admission. - patient's son states medication be an old prescription, no recent Rx for benzos apparent but patient admits he took an old prescription. - has been battling with depression for years. Patient with recent change and started on seroquel which only made his thoughts race and where he could not sleep. Sertraline was also increased a week ago from 50 to 100 mg daily. - will continue to hold antidepressants currently, consider psychiatric consultation vs further inpatient psychiatric management either as an involuntary or voluntary basis. 3. Depression, present on admission - held as above temporarily. Will not resume home seroquel given seemingly worsened symptoms. 4. Diabetes, type II, present on admission, chronic - A1c 6.7 inicating adequate control. Continue glucose checks q6 hr and sliding scale insulin if necessary. 5. HTN - will hold home antihypertensives for now while on sedation 6. Prior CVA - continue ASA, lipitor. 7. Prior cardiac arrest - continue ASA, lipitor. DVT: lovenox daily Diet: dysphagia diet after intubation pending speech evaluation. Dispo: admitted under intensive care, stable for regular floor after successfully extubating this AM once respiratory status is stable. Likely discharge to inpatient psychiatry on voluntary basis or involuntary hold. Social work consultation ordered and will begin working on disposition tomorrow. I spent 35 minutes providing critical care management this patient. This excludes time spent in performing separately billed procedures.
[2020-08-15] MEDS: ATORVASTATIN 20 MG TABLET 80 MG PO (21:36)
[2020-08-16] VITALS (8 sets, daily range): BP systolic 102–143; BP diastolic 55–71; PULSE 44–58; RESP 20–23; TEMP 36.9–37.1; O2SAT 93–99
[2020-08-16 05:24] LABS: Add Manual Diff / Slide Review NO; Basophils Absolute Auto 0 /uL (0-100); Basophils Percent Auto 0.6 % (0-2); Eosinophils Absolute Auto 300 /uL (0-450); Eosinophils Percent Auto 4.8 % (2-4); Hematocrit 36.2 % (41-53); Hemoglobin 12.6 g/dL (13.5-17.5); Lymphocytes Absolute Auto 900 /uL (1100-4500); Lymphocytes Percent Auto 14.9 % (25-40); Mean Corpuscular HGB Conc 34.9 % (30-36); Mean Corpuscular Hemoglobin 30.4 PG (26-34); Mean Corpuscular Volume 87.2 fL (80-100); Monocytes Absolute Auto 800 /uL (0-900); Monocytes Percent Auto 13.9 % (3-14); Neutrophils Absolute Auto 3900 /uL (1500-7000); Neutrophils Percent Auto 65.8 % (50-75); Platelet Count 103 X10^3/uL (150-400); Red Blood Cell Count 4.16 X10^6/uL (4.5-5.9); White Blood Cell Count 5.9 X10^3/uL (4.5-11.0)
[2020-08-16 05:34] LABS: Alanine Aminotransferase 42 IU/L (<50); Albumin Globulin Ratio 1.1 (1.0-2.8); Alkaline Phosphatase 89 U/L (38-126); Aspartate Aminotransferase 43 IU/L (17-59); BUN Creatinine Ratio 10.4 (6-22); Bilirubin Total 0.7 mg/dL (0.2-1.3); Bilirubin Unconjugated 0.5 mg/dL (0.0-1.1); Blood Urea Nitrogen 11 mg/dL (9-20); Calcium 8.2 mg/dL (8.4-10.2); Carbon Dioxide 27 mmol/L (22-32); Chloride 108 mmol/L (98-107); Estimated Glomerular Filt Rate > 60.0 mL/min (>60); Globulin 2.8 g/dL (1.7-4.1); Glucose 98 mg/dL (80-110); HEMOLYSIS < 15 (0-50); Magnesium 1.8 mg/dL (1.6-2.3); Potassium 3.6 mmol/L (3.4-5.1); Sodium 138 mmol/L (137-145); Total Protein 5.8 g/dL (6.3-8.2)
--- NOTE | 2020-08-16 07:09 | PC.NURSE ---
Arrived at 7am, Patient currently sleeping on his left side.
--- NOTE | 2020-08-16 09:02 | PC.NURSE ---
Patient stated that he would just like to sleep for a while, after he finished eating his Breakfast
[2020-08-16] MEDS: ENOXAPARIN 40 MG/0.4 ML SYRINGE SUBCUT (09:35)
[2020-08-16] MEDS: PANTOPRAZOLE 40 MG VIAL IV (09:35)
[2020-08-16] MEDS: ASPIRIN 325 MG TABLET PO (09:35)
--- NOTE | 2020-08-16 10:08 | PC.NURSE ---
Directed by RN to discontinue Q2 Vitals, Tele and Continuous Pulse Ox. Patient is resting and trying to sleep.
--- NOTE | 2020-08-16 10:13 | PC.NURSE ---
Rec'd pt in bed resting comfortably with eyes closed. Easily awakens to verbal and is answering questions correctly and appropriately with clear speech. His affect is flat and depressed. He reports ongoing depression. He admits to taking too much medication in attempts to end his life but denies current SI. He states that he has a counselor in [place] that he meets with and that his PCP prescribes his medications. He lives with his girlfriend of 8 years. He denies previous suicide attempts. Reports that his ex committed suicide. He becomes quiet upon further questioning. States that he is really just tired and would like to get some sleep. SPO2 on 2L 98%. Removed O2 for room air trial. F/u SPO2 95%. Encouraged use of IS/acapella. Pt Declined oral care and hygiene at this time. Educated to plan of care. He verbalizes understanding. Call light in easy reach. 1:1 sitter for safety.
[2020-08-16] MEDS: lisinopriL 20 MG TABLET PO (12:21)
--- NOTE | 2020-08-16 12:21 | CM.SWNOTE ---
Addendum entered by ELISEO Kwok 08/16/20 15:06: [facility]- Full today and tomorrow, ER on [facility] Addendum entered by ELISEO Kwok 08/16/20 14:45: [facility]- Full today and tomorrow [place]- no too medically complex [place] still reviewing Addendum entered by ELISEO Kwok 08/16/20 14:03: Discussed case again w/Dr Shah; Suggested placement may be challenging d/t CPAP machine. [facility] [place] still reviewing. Dr Shah does not think patient is safe to return home at this time. Patient remains voluntary now at 1400, but does have a tendency to waver in agreement. Suggested we attempt consult by [facility] psychiatrist (?) to assist in dispo planning, assess safety and acuity; plan for potential of DC home if no psychiatric bed is secured and patient found safe to return home. Dr Shah agrees. Addendum entered by ELISEO Kwok 08/16/20 13:58: Attempting following eric-psych units: [facility]- no d/t CPAP (Aerosolizing/COVID-19 risk) [place] [facility]- Reviewing [place] - Reviewing Original Note: [facility] [place] - Computer Lab Aide Assessment Start: 08/16/20 11:57 Freq: Status: Active Protocol: Document 08/16/20 11:58 NIKHIL (Rec: 08/16/20 12:21 NIKHIL [id number]) VIDEO MANAGER/Computer Lab Aide Assessment Presenting Problem A 70-year-old male comes in after intentionally taking 60 tablets of clonazepam; After recently starting seroquel the patient could not sleep for more than a few hours at night , had racing thoughts and just wanted some rest. He no longer wanted to live like that and ultimately this is the reason he ingested the old prescription he had. He still states that he just wants to rest and feels like he would be better off . Intentional OD in the setting of increased depression and inability to function over the last 2-3 weeks; loss in appetite, loss of sleep, finding no stu in daily activities and no motivation to continue living life. Precipitating Event(s) Seasonal Affective Disorder, Severe depression w/symptoms of such escalating over the last 2 weeks. Lack of sleep, medication change- increase in Zoloft and addition of Seroquel Patient Strengths Good support network, PCP and counselor on Thursday checking in daily, attempting to manage patient's severe depression. Likes living on [place] typically alert friends, family, counselor of increased thoughts about suicide and agitation; felt this time I was going crazy and just wanted it to end Current Behavioral Health Provider(s) PCP Dr Villalpando, Counselor [facility] Include Facility, Provider[facility] Family Hx of Behavioral Abuse Ex spouse severely depressed w /anxiety, multiple suicide attempts Psychiatric Hospitalizations (date(s)/ N/A location) Psychosocial information & Support Lives w/ gf Mouna, together x8 Systems years, on [place], both retired. Son Stefano supportive and involved, dtr Brandy also involved in patient's life lives in [place]. Patient sufferred multiple strokes 3 years ago, states ever since then I get really depressed when the weather changes and it gets darker typically able to travel annually to [place] when weather changes to assist w/ symtpoms of SAD Son: Aristides Marrero [phone] Dtr Brandy Mccormick [phone] School/Work N/A Legal Matters - Outstanding Issues N/A Orientation (Person/Place/Time) Oriented Stated Mood Tired Affect (Congruent with Mood?) Flat, according to Dr Shah very severe depressed state w/ psychomotor retardation Thought Content - Specify/Describe WNL Obsessions, Delusions, Hallucinations Thought Processes (Jiwjdwh-Gxmpxxvr-Ihop Logical, no able to discuss Bqtmphph-Kktcgpqr-Xrvmlvotkc- goals, want to sleep Oagxnjhtqscqrj-Vaxrjjr-Uvinffbbmtka- Thought Blocking) Speech (Sjbhro-Kbsz-Gvchzvy-Rapid-Soft- Slow Loud-Pressured) Motor (Phchdr-Oacovxnov-Axfb-Other) Slow Insight (Lzac-Bqtr-Qanz/Limited) Poor Judgement (Hohr-Afjs-Vdrs/Limited) Poor and impulsive Impulse Control (Adequate-Impaired) Impaired Memory (Hzjrmgwly-Wgbmvv-[place], Intact Impaired-Intact) Concentration (Intact-Impaired) Impaired Attention (Intact-Impaired) Impaired Behavior (Appropriate-Inappropriate) Appropriate Additional Comment Able to recall events and discuss increase in depressive feelings over last two weeks although exhibits qualities of an acutely, severely depressed individual requires inpatient psychiatric unit for crisis stabilization and medication management Suicidal Ideation (Plan) Yes: Pills, whatever is available Homicidal Ideation (Plan) No Intervention Medically stable and now requires additional stabilization at psychiatric facility. Dr Shah, hospitalist has cleared medically but does not endorse safe plan for home today. Patient remains acutely depressed w/slowed motor response, flat affect and inability to safety plan for return home. Failed outpatient management of his severe depression. RA Plan Attempt eric-psychiatric placement ELISEO Kwok
--- NOTE | 2020-08-16 13:36 | PC.NURSE ---
A member of clergy (Maggy) came to visit the Patient. Patient is calm and welcomed the visitor.
--- NOTE | 2020-08-16 14:00 | PC.NURSE ---
Patient is awake and still visiting with the member of clergy.
--- NOTE | 2020-08-16 14:23 | PC.NURSE ---
Patient's visitor left at 14:20. Patient is calm and wants to rest.
--- NOTE | 2020-08-16 14:43 | PC.NURSE ---
Patient has been up out of bed three times so far during this day shift, to go to the Bathroom. He is moderately stable on his feet, using only Standby Assistance when he gets out of bed. He has utilized the toilet independently each time and then walked to the sink to wash his hands. He returns to bed where he is able to reposition himself. Bed alarm is turned on for his safety.
--- NOTE | 2020-08-16 15:27 | P.PN_ITS ---
Subjective Subjective Date Patient Seen: 08/16/20 Time Patient Seen: 15:28 Interval history: Jorge Alberto Marrero is A 70-year-old male with past medical history of diabetes, hypertension, depression, prior stroke and cardiac arrest who intentionally took 60 tablets of clonazepam and was intubated in the field for worsening respiratory status. He was able to be extubated on HD#2 and is now off supplemental oxygen. He states he feels tired and just wants to rest. Have asked for psychiatry consultation from Dr. Chirinos given severe depression. Patient was avoidant on answering whether he regretted taking the pills, stating that he did accomplish his wish of getting some rest. He denies complaints of nausea, vomiting, abdominal pain, chest pain, shortness of breath today. Exam Vital Signs (past 8 hours): - 08/16/20 08:00 08/16/20 10:17 08/16/20 12:20 Temperature 98.4 F Pulse Rate 44 L Blood Pressure 143/65 H 139/68 Pulse Oximetry 97 93 Fraction of Inspired Oxygen 0.3 Oxygen Delivery Method Room Air Oxygen Flow Rate 1.5 Narrative Exam Narrative: GENERAL APPEARANCE: Well developed, well nourished, Appears comfortable. SKIN: Inspection of the skin reveals no rashes, ulcerations or petechiae. HEENT: Normocephalic atraumatic, extraocular muscles are intact, oropharynx is clear and mucous membranes are moist, neck is supple without adenopathy. NECK: Supple and symmetric. There was no thyroid enlargement, and no tenderness, or masses were felt. CHEST: Normal AP diameter and normal contour without any kyphoscoliosis. LUNGS: Auscultation of the lungs revealed no wheezes, rhonchi, or rales. CARDIOVASCULAR: There was a bradycardic rate and regular rhythm without any murmurs, gallops, rubs. Peripheral pulses were 2+ and symmetric. ABDOMEN: Soft and nontender with normal bowel sounds. No ascites was noted. MUSCULOSKELETAL: There was no tenderness or effusions noted. Muscle strength and tone were normal. EXTREMITIES: No cyanosis, clubbing or edema. NEUROLOGIC: flat affect with psychomotor retardation. alert and oriented x3. No focal deficits. Objective Labs Result Diagrams: 08/16/20 04:54 08/16/20 04:54 Labs: Laboratory Results - last 24 hr 08/16/20 08/16/20 04:54 04:54 WBC 5.9 RBC 4.16 L Hgb 12.6 L Hct 36.2 L MCV 87.2 MCH 30.4 MCHC 34.9 RDW 14.0 Plt Count 103 L Neut % (Auto) 65.8 Lymph % (Auto) 14.9 L [place] % (Auto) 13.9 Eos % (Auto) 4.8 H Baso % (Auto) 0.6 Neut # (Auto) 3900 Lymph # (Auto) 900 L [place] # (Auto) 800 Eos # (Auto) 300 Baso # (Auto) 0 Sodium 138 Potassium 3.6 Chloride 108 H Carbon Dioxide 27 BUN 11 Creatinine 1.06 Estimated GFR > 60.0 BUN/Creatinine Ratio 10.4 Glucose 98 Calcium 8.2 L Magnesium 1.8 Total Bilirubin 0.7 Conjugated Bilirubin 0.0 Unconjugated Bilirubin 0.5 AST 43 ALT 42 Alkaline Phosphatase 89 Total Protein 5.8 L Albumin 3.0 L Globulin 2.8 Albumin/Globulin Ratio 1.1 Assessment & Plan Assessment & Plan narrative: Jorge Alberto Marrero is A 70-year-old male with past medical history of diabetes, hypertension, depression, prior stroke and cardiac arrest who intentionally took 60 tablets of clonazepam this morning In a presumed suicide attempt. He was intubated in transport to the hospital for respiratory decompensation and is admitted to the ICU for further management. 1. acute hypoxemic respiratory failure, present on admission, resolved. - likely secondary to intentional clonazepam overdose. Remained intubated for two nights until was alert enough to tolerate extubation on 08/15. Extubated s uccessfully to nasal cannula and now off supplemental oxygen. - Chest x-ray shows a mild left retrocardiac opacity, no other signs or symptoms of pneumonia and may be aspiration from intubation in the field. Will continue to monitor off antibiotics. - speech therapy was consulted but patient did not have any cough and was tolerating a regular diet without problems. 2. intentional overdose with clonazepam, acute, present on admission. - patient's son states medication be an old prescription, no recent Rx for benzos apparent but patient admits he took an old prescription. - has been battling with depression for years. Patient with recent change and started on seroquel which only made his thoughts race and where he could not sleep. Sertraline was also increased a week ago from 50 to 100 mg daily. - will continue to hold antidepressants currently, have asked for consultation from Dr. Chirinos for further medication recommendations. 3. Depression, present on admission - held as above temporarily. Will not resume home seroquel given seemingly worsened symptoms. 4. Diabetes, type II, present on admission, chronic - A1c 6.7 inicating adequate control. Glucose levels have been unremarkable. 5. HTN - can resume home lisiniopril today. 6. Prior CVA - continue ASA, lipitor. 7. Prior cardiac arrest - continue ASA, lipitor. 8. DB on CPAP thearpy. - continue CPAP therapy at night. DVT: lovenox daily Diet: dysphagia diet after intubation pending speech evaluation. Dispo: admitted under intensive care, stable for regular floor after successfully extubating. Likely discharge to inpatient psychiatry on voluntary basis or involuntary hold although this is apparently difficult for a patient on CPAP therapy. Appreciate social work / care management assistance. I spent 35 minutes providing critical care management this patient. This excludes time spent in performing separately billed procedures.
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
--- NOTE | 2020-08-16 20:44 | PC.NURSE ---
Evening Shift Note: Pt received laying in bed, alert and oriented. Pt denies suicidal ideation or thoughts of self harm. Pt states I feel much better, I think its the rest I've gotten. Pt went on to describe the feelings of depression that he has been having, stating It seems like you should just be able to get over it, because its in your brain. But you just can't shake it. Pt otherwise remains on RA, denies SOB, endorses having a new cough, non-productive. Pt with VSS. Pt with 1:1 observation. Will continue to monitor, notify MD with changes.
[2020-08-16] MEDS: ATORVASTATIN 20 MG TABLET 80 MG PO (21:15)
[2020-08-17] VITALS: BP 161/77; PULSE 49; RESP 20; TEMP 36.7; O2SAT 95
[2020-08-17 02:58] VITALS: BP 145/68; PULSE 48
[2020-08-17 05:02] LABS: Blood Urea Nitrogen 14 mg/dL (9-20); Calcium 8.4 mg/dL (8.4-10.2); Carbon Dioxide 30 mmol/L (22-32); Chloride 107 mmol/L (98-107); Estimated Glomerular Filt Rate > 60.0 mL/min (>60); Glucose 106 mg/dL (80-110); HEMOLYSIS < 15 (0-50); Potassium 3.9 mmol/L (3.4-5.1); Sodium 138 mmol/L (137-145)
[2020-08-17] MEDS: PANTOPRAZOLE 20 MG TABLET PO (06:57)
[2020-08-17] MEDS: ENOXAPARIN 40 MG/0.4 ML SYRINGE SUBCUT (08:19)
[2020-08-17] MEDS: ASPIRIN 325 MG TABLET PO (08:19)
[2020-08-17] MEDS: lisinopriL 20 MG TABLET PO (08:19)
[2020-08-17 08:35] VITALS: BP 116/59; PULSE 44; RESP 20; TEMP 36.6; O2SAT 98
--- NOTE | 2020-08-17 09:09 | PC.NURSE ---
Addendum entered by Armando Hardy R.N. 08/17/20 14:57: 1200- Checked on pt. He reports feeling increasing depression and panic. Spent some time listening and providing emotional support to pt. He does not demonstrate overt s/s of anxiety attack or panic but reports increase in symptoms starting last night. He is unable to explain exactly how he feels but does agree that he is feeling hopeless in regards to his continued depression. He is hoping to be able to go to an inpatient psychiatric facility since all other interventions to help his depression have been ineffective. Still awaiting d/c plan. Maintaining 1:1 sitter for safety. Original Note: Woke pt for VS/assessment/breakfast. Pt is AO x4 and answering questions appropriately with clear speech. He is agreeable to get OOB to chair for breakfast. After breakfast, pt ambulated 250 ft in the hallway without assistive device. Gait is steady. He is denying pain. He ate 90% of his breakfast and took his AM pills whole no difficulty. He was able to shower and attend to his hygiene independently with observation per hospital policy. He currently denies SI. He is asking appropriate questions regarding the plan of care. Spoke with [facility]ON MELTER who is working on inpatient psych placement. Will update pt when more information is available. He verbalizes understanding.
--- NOTE | 2020-08-17 11:58 | CM.SWNOTE ---
Addendum entered by ELISEO Kwok 08/17/20 15:28: [facility] has patient on list for re-review today but now slammed by people in their ED which will have priority for placement. [facility]- Has roommate-able male bed open, will consider voluntary, CPAP okay, request clinical packet for review, request Magnesium and EKG to be included. Faxed packet w/requested items to F# [phone]. Awaiting CB. gave CB contact for ICU direct at [phone] and ED ANIMAL ATTENDANT Ke Reynolds in case he can assist once this ANIMAL ATTENDANT leaves for the day. Addendum entered by ELISEO Kwok 08/17/20 15:24: Correction: Staff unable to assist with settings on patient's home CPAP machine. Patient tells this ANIMAL ATTENDANT that he has placed call to the sleep therapy specialist to discuss CPAP settings, awaiting CB JW Original Note: ANIMAL ATTENDANT Note Spoke w/Dr Shah and nursing staff this morning, reviewed POC. Dr Shah continues to feel patient requires inpatient psychiatric care, not safe to return home at this time. Met w/patient, reviewed efforts yesterday in placement attempt. Patient sitting up, new home CPAP machine has been delivered to room and patient pleased, staff assisting in settings. Patient states he had a good night sleep last night and hopeful new cpap will assist in continued restful sleep in the evenings. Asked patient about POC today; patient explains he feels better but understands that the consensus from staff is that inpatient psychiatric care is required before return home. Discussed the rigor of inpatient therapy sessions/group with patient and he understood, states he is agreeable to this. Spoke w/VASYL Arias this morning, patient doing very well physically, walking the hallway independently w/o AD, steady gait no LOB. According to VM from [facility], concern about mobility and patient's willingness to participate, which is reasonable. Patient in good spirits and moving well; would benefit from a re-eval from [facility] if they have beds today. ELISEO Kwok
--- NOTE | 2020-08-17 13:15 | PC.NURSE ---
at Pt's bedside discussing medication
--- NOTE | 2020-08-17 13:36 | ST.IPCSEOM ---
Visit Care Team Role Provider Type Salvatore Chirinos MD Other Providers Physician Specialty: Psychiatry Address: [address] [place] [address], [place], [address] Email: [email or web address] Anabel Ocasio DO Emergency Provider Physician Referring Provider Specialty: Emergency Medicine Address: [address] [place] [address], [id number] Email: [email or web address] Musa Shah DO Admit Provider Physician Attending Provider Specialty: Internal Medicine Address: [address] [place] [address], [id number] Email: [email or web address] 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 Pt initially placed on Mechanical soft diet by Dr. Shah. Swallow evaluation to r/o aspiration risk and to upgrade diet as indicated. Subjective Observations Pt in bed seated at the edge of the bed with noon meal. Reported by Patient Current Diet Dysphagia mechanical,Thin liquids Baseline Feeding Method Independent in self-feeding Objective Assessment Mental Status Alert,Responsive,Cooperative Oral Integrity WFL Lip Function Within normal limits Observation of Lips at Rest Symmetrical Pucker Within normal limits Tongue Function Within normal limits Food and Liquid Trials Position During Assessment Upright (90 degrees) Liquids Trialed Thin Solids Trialed Regular Administration Type Self-feeding Oral Impairment Within functional limits Oral Phase Comments pt demonstrated adequate mastication with rotary chew pattern. No oral stasis observed following trial with cracker. No cough/choke s/sx aspiration. Voice clear following thin liquids. Pharyngeal Impairment Within functional limits Pharyngeal Phase Comments Palpation for hyolaryngal elevation indicated adequate elevation and forward movement of hyoid. Silent aspiration cannot be ruled out as mechanical evaluation (MBSS, FEES) would be necessary to determine silent aspiration. Fatigue/Endurance Endurance WNL Results Swallowing observed to be WFL at regular texture/thin liquids. No overt s/sx aspiration. Findings Swallowing Function Within functional limits Severity of Swallow Impairment Within functional limits Impact on Safety and Functioning No limitations Recommendations Swallowing Treatment No Recommended Solids Regular Recommended Liquids Thin Medication Recommendations As Tolerated Discharge Recommendations Other (comment) Education Patient/Caregiver Education Described results of evaluation,Patient expressed understanding of evaluation
--- NOTE | 2020-08-17 15:11 | P.PN_ITS ---
Subjective Subjective Date Patient Seen: 08/17/20 Time Patient Seen: 15:11 Interval history: Jorge Alberto Marrero is A 70-year-old male with past medical history of diabetes, hypertension, depression, prior stroke and cardiac arrest who intentionally took 60 tablets of clonazepam and was intubated in the field for worsening respiratory status. He was able to be extubated on HD#2 and is now off supplemental oxygen. He states he feels tired and just wants to rest. Appreciate recommendations from Dr. Chirinos, psychiatry. He denies further complaints of chest pain, shortness of breath, nausea, vomiting, abdominal pain. Exam Vital Signs (past 8 hours): - 08/17/20 08:35 Temperature 97.8 F Pulse Rate 44 L Respiratory Rate 20 Blood Pressure 116/59 L Pulse Oximetry 98 Fraction of Inspired Oxygen 0.3 Oxygen Delivery Method Room Air Oxygen Flow Rate 0 Narrative Exam Narrative: GENERAL APPEARANCE: Well developed, well nourished, profoundly depressed appearing. SKIN: Inspection of the skin reveals no rashes, ulcerations or petechiae. HEENT: Normocephalic atraumatic, extraocular muscles are intact, oropharynx is clear and mucous membranes are moist, neck is supple without adenopathy. NECK: Supple and symmetric. There was no thyroid enlargement, and no tenderness, or masses were felt. CHEST: Normal AP diameter and normal contour without any kyphoscoliosis. LUNGS: Auscultation of the lungs revealed no wheezes, rhonchi, or rales. CARDIOVASCULAR: There was a bradycardic rate and regular rhythm without any murmurs, gallops, rubs. Peripheral pulses were 2+ and symmetric. ABDOMEN: Soft and nontender with normal bowel sounds. No ascites was noted. MUSCULOSKELETAL: There was no tenderness or effusions noted. Muscle strength and tone were normal. EXTREMITIES: No cyanosis, clubbing or edema. NEUROLOGIC: flat affect with psychomotor retardation. alert and oriented x3. No focal deficits. Objective Labs Result Diagrams: 08/16/20 04:54 08/17/20 04:26 Labs: Laboratory Results - last 24 hr 08/17/20 04:26 Sodium 138 Potassium 3.9 Chloride 107 Carbon Dioxide 30 BUN 14 Creatinine 1.08 Estimated GFR > 60.0 BUN/Creatinine Ratio 13.0 Glucose 106 Calcium 8.4 Assessment & Plan Assessment & Plan narrative: Jorge Alberto Marrero is A 70-year-old male with past medical history of diabetes, hypertension, depression, prior stroke and cardiac arrest who intentionally took 60 tablets of clonazepam this morning In a presumed suicide attempt. He was intubated in transport to the hospital for respiratory decompensation and is admitted to the ICU for further management. 1. acute hypoxemic respiratory failure, present on admission, resolved. - likely secondary to intentional clonazepam overdose. Remained intubated for two nights until was alert enough to tolerate extubation on 08/15. Extubated linares ccessfully to nasal cannula and now off supplemental oxygen. - Chest x-ray shows a mild left retrocardiac opacity, no other signs or symptoms of pneumonia and may be aspiration from intubation in the field. Will continue to monitor off antibiotics. - speech therapy was consulted but patient did not have any cough and was tolerating a regular diet without problems. 2. intentional overdose with clonazepam, acute, present on admission. - patient's son states medication be an old prescription, no recent Rx for benzos apparent but patient admits he took an old prescription. - has been battling with depression for years. Patient with recent change and started on seroquel which only made his thoughts race and where he could not sleep. Sertraline was also increased a week ago from 50 to 100 mg daily. Patient is also fixated on his CPAP mask not working recently. - will restart sertraline per psychiatry recommendations. Appreciate assistance with management. Recommended inpatient treatment given the seriousness of his attempt. 3. Depression, present on admission - management as noted above. Will not resume home seroquel given seemingly worsened symptoms. - Patient will be a difficult inpatient placement given his DB on CPAP therapy. 4. Diabetes, type II, present on admission, chronic - A1c 6.7 indicating adequate control. Glucose levels have been unremarkable. 5. HTN - have resumed home lisinopril, initially held while on sedating medications. 6. Prior CVA - continue ASA, lipitor. 7. Prior cardiac arrest - continue ASA, lipitor. 8. DB on CPAP thearpy. - continue CPAP therapy at night. DVT: lovenox daily Diet: heart healthy diet. Dispo: admitted under intensive care, stable for regular floor after successfully extubating. Likely discharge to inpatient psychiatry on voluntary basis or involuntary hold although this is apparently difficult for a patient on CPAP therapy. Appreciate social work / care management assistance.
--- NOTE | 2020-08-17 15:37 | CM.SWNOTE ---
PARALLEL COMPUTING SOFTWARE ENGINEER Note Efforts continue to find inpatient psychiatric placement for this 70 male, remains voluntary today, admits to suicidal ideation and intentional OD. Admits to long standing, uncontrolled severe depression. Reviewed Dr Chirinos's clinical note and staffed case today w/Dr Shah, nursing staff and ED PARALLEL COMPUTING SOFTWARE ENGINEER Ke Reynolds; unanimous input that patient requires hospitalization w/ 1:1 sitter until inpatient psychiatric placement can be secured. Need to reassess safety/risk daily. Call to DCR if patient no longer agrees to voluntary bed placement. Psychiatry back Thursday. Will continue efforts today and over weekend for placement, again, safety evaluation will need to happen per the day. Josselin Wood MSW
--- NOTE | 2020-08-17 15:52 | CM.SWNOTE ---
[facility] Contact Information: P# [phone] F# [phone] JW
[2020-08-17 16:03] VITALS: BP 162/72; PULSE 50; RESP 18; TEMP 36.8; O2SAT 96
[2020-08-17 17:54] LABS: Bacteria Urine None Seen; RBC Urine None Seen (0-5/HPF); WBC Urine None Seen (0-5/HPF)
[2020-08-17 17:56] LABS: Appearance Urine UA CLEAR; Bilirubin Urine UA NEGATIVE (NEGATIVE); Color Urine UA YELLOW; Glucose Urine UA NEGATIVE (Negative); Ketones Urine UA NEGATIVE (NEGATIVE); Leukocyte Esterase Urine UA NEGATIVE (NEGATIVE); Nitrite Urine UA NEGATIVE (Negative); Occult Blood Urine UA NEGATIVE (Negative); Protein Urine UA NEGATIVE (Negative); Specific Gravity Urine UA 1.015 (1.000-1.035); Urobilinogen Urine UA 0.2 E.U./dL (0.2)
[2020-08-17 18:45] LABS: Culture Indicated Urine Cult Not Indicated
[2020-08-17 20:29] LABS: COVID19 -Nasal RAPID Negative (Negative)
[2020-08-17] MEDS: ATORVASTATIN 20 MG TABLET 80 MG PO (21:27)
[2020-08-17] MEDS: MELATONIN 3 MG TABLET 6 MG PO (21:28)
--- NOTE | 2020-08-17 23:14 | PC.NURSE ---
Dayshift Note: Pt received laying in bed. Pt assessed. When asked how he was doing, pt stated I'm depressed. He went on to say that it had started last night and had affected his sleep, he said he was woken up a few times overnight and did not feel that he had a good night's sleep. We discussed his CPAP machine and the fact that the new machine did not seem to have different settings than the old machine and that he did not feel like he was getting enough air/pressure. RT at the bedside later and discussed that the supplying company had to make changes to CPAP, and that changing the face mask or other alterations the RT could do here would not improve pt's subjective comfort with CPAP machine. Pt started on melatonin tonight. Arrangements made for transferring pt to [facility] for inpatient Psychiatric treatment tomorrow morning. This RN spoke to Marissa at [facility]. Dr. Emily Broussard is admitting physician. Overnight provider notified of transfer, provider thought that it would be best for pt to transfer in am d/t pt's chronic sleep deprivation and pt's preference to transfer in am. Also discussed with charge master specialist and admitting facility as well as the patient. Plan made for am transfer to inpatient psychiatric unit at [facility].
[2020-08-18] VITALS: BP 122/57; PULSE 51; RESP 20; TEMP 36.7; O2SAT 97
--- NOTE | 2020-08-18 01:00 | P.DS_ITS ---
History of Present Illness History of Present Illness Date Patient Seen: 08/18/20 Chief complaint: Lorazepam OD, Narrative: HPI Dr. Musa Shah: Jorge Alberto Marrero is A 70-year-old male with past medical history of diabetes, hypertension, depression, prior stroke and cardiac arrest who intentionally took 60 tablets of clonazepam this morning In a presumed suicide attempt. His girlfriend found him and once he told her she called EMS. He was transported by the fire boat and deteriorated en route and was intubated by paramedics with Rocuronium and etomidate. The son states that he has been battling depression for quite some time. It does seemingly get worse in the winter but he has had no prior suicide attempts but has stated at times in the past he would rather be . he was taken to the [place] emergency room about a week ago but they were unable to find a facility willing to except him, family was told by his primary care provider not to let the patient be alone. upon arrival to the floor the patient is intubated and sedated on propofol and fentanyl. He will remain intubated overnight for further supportive care, he is admitted to the ICU for acute hypoxic respiratory failure secondary to intentional overdose of benzodiazepines. Discharge Providers Provider Date of admission: 08/13/20 14:42 Discharge Date: 08/18/20 Consults: 08/13/20 13:46 Consult to Dietitian, Adult Routine Comment: Reason For Exam: Patient on Ventilator and NPO 08/13/20 14:28 Consult to [facility] - Heating And Cooling Systems Engineer Stat Comment: 08/13/20 16:53 Consult to [facility] - Heating And Cooling Systems Engineer Routine Comment: suicide attempt 08/13/20 17:33 Consult to Dietitian, Adult Routine Comment: Reason For Exam: tobias score <18 08/15/20 09:11 Consult to Speech Therapy Evaluate & Treat Comment: extubated 10/7 AM Physician Instructions: Evaluate and treat 08/15/20 20:29 Consult to Respiratory Therapy Evaluate & Treat Comment: CPAP Physician Instructions: Evaluate and treat 08/16/20 15:50 Consult to Physician Routine Comment: Consulting Provider: Salvatore Rey Reason for consultation: suicide attempt, medication recommendations Discharge provider: AMANDA Cruz Summary Hospital Course Discharge Diagnosis: Jorge Alberto Marrero is A 70-year-old male with past medical history of diabetes, hypertension, depression, prior stroke and cardiac arrest who intentionally took 60 tablets of clonazepam this morning In a presumed suicide attempt. He was intubated in transport to the hospital for respiratory decompensation and is admitted to the ICU for further management. 1. acute hypoxemic respiratory failure, present on admission, resolved. 2. intentional overdose with clonazepam, acute, present on admission. 3. Depression, chronic. 4. Diabetes, type II, chronic. 5. HTN, chronic. 6. Prior CVA. 7. Prior cardiac arrest. 8. DB on CPAP thearpy, chronic. Hospital Course: The patient received in the in the ER at 1:10 p.m. following the patient being intubated in the field. Patient maintained stable vital signs without hypotension or tachycardia. His initial ABG showed a pH of 7.44, pCO2 of 35.7, PO2 of 1/7 with a bicarbonate 24 and a base excess 0 on 50% FiO2. Initial labs revealed an H&H of 14 and 41.7 with low platelets at 119 initial CM P was all within normal limits. His UA was negative and his urine drug screen was positive only for benzodiazepines. Patient was coli admitted to the ICU on ventilatory support maintained on propofol and a fentanyl drip. A chest x-ray obtained showed mild retrocardiac opacities without other evidence of pneumonia and was felt to be related to an aspiration during field into the patient. No antibiotic therapy was initiated. The patient remained sedated and intubated for 2 nights until he was awaken of to successfully passes spontaneous breathing trial. The patient was extubated the morning of 08/15/2020 and transition to nasal cannula oxygen which was discontinued following day. Patient was subsequently evaluated by speech therapy which found no impediment to swallowing patient was started a diet. INSERTER spoke with the patient found the patient profoundly depressed. Recommendation was made for behavioral health specialist to evaluate the patient and Dr. Salvatore rey evaluated the patient on 08/16/2020. Please refer to his note of same date for further information. He recommended the patient be restarted on sertraline at 50 mg daily and that DCR becomes involved related to the seriousness of the patient's suicide attempts. Consensus of plan of care amongst providers with the patient was not safe for discharge home it would be needing an inpatient care setting. The patient has remained voluntary and agrees with the plan of care. The evening of 08/17/2020 the patient was accepted at [facility] with plan to transfer in the morning. Patient remained stable and is appropriate for transfer. Status at Discharge Cognitive/behavioral status at discharge: oriented Functional status at discharge: independent ambulation Overall status at discharge: patient is back to baseline (Medically stable for transfer) Time Spent with Patient Time spent: Less than 30 minutes Exam Vital Signs (past 8 hours): - 08/18/20 00:00 Temperature 98.0 F Pulse Rate 51 L Respiratory Rate 20 Blood Pressure 122/57 L Pulse Oximetry 97 Fraction of Inspired Oxygen 0.3 Oxygen Delivery Method Room Air Oxygen Flow Rate 0 Narrative Exam Narrative: GENERAL APPEARANCE: Well developed, well nourished, profoundly depressed appearing. SKIN: Inspection of the skin reveals no rashes, ulcerations or petechiae. HEENT: Normocephalic atraumatic, extraocular muscles are intact, oropharynx is clear and mucous membranes are moist. NECK: Supple and symmetric. There was no thyroid enlargement, and no tenderness, adenopathy or masses were felt. CHEST: Normal AP diameter and normal contour without any kyphoscoliosis. LUNGS: Auscultation of the lungs revealed no wheezes, rhonchi, or rales. CARDIOVASCULAR: Sinus bradycardia on telemetry, regular rhythm without ectopy, no murmurs, gallops, rubs. Peripheral pulses were 2+ and symmetric. ABDOMEN: Soft and nontender with normal bowel sounds. No ascites was noted. MUSCULOSKELETAL: There was no tenderness or effusions noted. Muscle strength and tone were normal. EXTREMITIES: No cyanosis, clubbing or edema. NEUROLOGIC: flat affect with psychomotor retardation. alert and oriented x3. No focal deficits. Objective Labs Result Diagrams: 08/16/20 04:54 08/17/20 04:26 Labs: Laboratory Results - last 24 hr 08/17/20 08/17/20 08/17/20 04:26 17:50 20:10 Sodium 138 Potassium 3.9 Chloride 107 Carbon Dioxide 30 BUN 14 Creatinine 1.08 Estimated GFR > 60.0 BUN/Creatinine Ratio 13.0 Glucose 106 Calcium 8.4 Urine Color Yellow Urine Appearance Clear Urine pH 7.0 Ur Specific Josephine 1.015 Urine Protein Negative Urine Glucose (UA) Negative Urine Ketones Negative Urine Occult Blood Negative Urine Nitrate Negative Urine Bilirubin Negative Urine Urobilinogen 0.2 Ur Leukocyte Esterase Negative Urine RBC None seen Urine WBC None seen Urine Bacteria None seen Ur Culture Indicated? Cult not indicated COVID-19 PCR Negative Discharge Plan Discharge Plan Disposition: Xfer Psychiatric Hosp Discharge Health Status Health Concerns: Repeat COVID-19 screening negative on 08/17/2020 Care Plan Goals: Transfer for psychiatric services
[2020-08-18 05:02] LABS: BUN Creatinine Ratio 18.1 (6-22); Blood Urea Nitrogen 19 mg/dL (9-20); Calcium 8.5 mg/dL (8.4-10.2); Carbon Dioxide 30 mmol/L (22-32); Chloride 105 mmol/L (98-107); Estimated Glomerular Filt Rate > 60.0 mL/min (>60); Glucose 124 mg/dL (80-110); HEMOLYSIS < 15 (0-50); Potassium 4.2 mmol/L (3.4-5.1); Sodium 139 mmol/L (137-145)
[2020-08-18] MEDS: PANTOPRAZOLE 20 MG TABLET PO (06:14)
[2020-08-18 07:00] VITALS: BP 161/74; PULSE 62; RESP 15; TEMP 36.3; O2SAT 97
--- NOTE | 2020-08-18 08:04 | CM.DPC ---
DCP Discharge Inpt MH tx Per MD, pt medically stable to d/c to inpatient mental health tx today. Per RN, confirmed overnight with [facility] in [facility] that they accept pt. [facility] transport was scheduled for this morning at 0800 and SW completed requested form for [facility] for Voluntary MH transport. RN provided report to [facility]. Plan: Patient to d/c to [facility] In MH unit this morning around 0800 for voluntary MH tx due to his intentional overdose and suicidal ideation and significant depression prior to return home with Sig Other. ELISEO Cota
--- NOTE | 2020-08-18 08:06 | PC.NURSE ---
Transfer Note Pt transferred voluntarily to [facility] via ambulance at 0750. Report called to receiving RN at [facility]. All belongings with pt including CPAP machine and clothing. Information packet with transport team.
== END 2020-08-18 07:50 | DRG 917 ==
LOC: ED 14:21 → AC 14:44 → ICU 17:17
PROVIDERS: Nurse Practitioner Adult Health; Admitting Provider Internal Medicine; Emergency Provider Emergency Medicine; Referring Provider Emergency Medicine; Visit Provider Internal Medicine
DX: T42.4X2A Poisoning by benzodiazepines, intentional self-harm, initial encounter (principal); J96.01 Acute respiratory failure with hypoxia; F33.2 Major depressive disorder, recurrent severe without psychotic features; G47.33 Obstructive sleep apnea (adult) (pediatric); E11.9 Type 2 diabetes mellitus without complications; I10 Essential (primary) hypertension; Z86.73 Personal history of transient ischemic attack (TIA), and cerebral infarction without residual deficits; Z79.84 Long term (current) use of oral hypoglycemic drugs
CPT/HCPCS: 36415; 36600; 51701; 70450; 71045; 74018; 80048; 80053; 80076; 80305; 80320; 80329; 81001; 82550; 82805; 82962; 83036; 83605; 83735; 84443; 84484; 85025; 87070; 87205; 87635; 87797; 90792; 92610; 93005; 94002; 94003; 94762; 94770; 94799; 96360; 99231; 99285; 99291; 99292; C9113; G0480; J1650; J2250; J2704; J3010

== ENCOUNTER → 2021-04-12 15:07 | Outpatient (CLI) | payer MEDICARE, SELFPAY ==
[2020-08-14 15:10] VITALS: BMI 24.5
[2020-08-15 07:58] VITALS: PULSE 54; RESP 17; O2SAT 100
--- NOTE | 2021-04-12 15:08 | DI.NM.S_ITS ---
PROCEDURE: NM EXERCISE TREADMILL NON NUC COMPARISON: None. INDICATIONS: Shortness of breath FINDINGS: The patient exercised for 6 minutes and 48 seconds, reaching 7.0 METs TREY 0%. 88% of maximum predicted heart rate achieved. No diagnostic ST changes with exercise or during recovery. No arrhythmias. IMPRESSION: Low risk, normal treadmill ECG only stress test with average exercise tolerance and no angina symptoms. Dictated by: Uziel Lainez MD on 04/17/2021 at 13:07 Approved by: Uziel Lainez MD on 04/17/2021 at 13:09
== END ==
LOC: DI 15:08
PROVIDERS: PCP Family Medicine; Referring Provider Family Medicine; Visit Provider Family Medicine
DX: R06.02 Shortness of breath (principal)
CPT/HCPCS: 93017